=== PATIENT | female | born 1940 | race Caucasian/White ===

== ENCOUNTER 2023-10-31 20:31 | Inpatient (IN) | payer MEDICARE, BC, SELFPAY ==
[2023-10-31 20:44] VITALS: BP 153/78; PULSE 72; RESP 16; TEMP 36.9; O2SAT 96; BMI 21.3
--- NOTE | 2023-10-31 20:58 | ED_ITS ---
HPI - General Adult General Time Seen by Provider: 20:58 Date Seen: 10/31/23 Chief complaint: Fall/Minor Trauma Stated complaint: fell, injured R shoulder/leg Time Seen by Provider: 10/31/23 20:58 Source: patient, family and RN notes reviewed Mode of arrival: wheelchair Limitations: no limitations History of Present Illness HPI narrative: Jovanna is a very pleasant 83-year-old female not currently on blood thinners, with a history of hypothyroidism who comes to the emergency room with her and her daughter for evaluation regarding a fall. Jovanna was going down steps into a lower level of a split-level house where she is staying with her daughter. Unfortunately she misjudged and missed the last step falling and landing out on carpet over cement injuring her right shoulder right hip and leg. She did not strike her head nor does she have headache or neck pain. She denies shortness of breath, chest pain dizziness or any prodromal symptoms prior to the fall. After the fall she did roll onto her back and had some dizziness and complained of pain which her daughter states is unusual for her. She has not taken any pain medication at this time. She notes that it is hard to move her right shoulder. She shows pain to be in the shoulder and upper humerus. When she was upright she had a hard time standing and bearing weight and had complained of pain in her hip although now that she is supine that she has no pain in her hip. She shows pain to be in her right lateral lower femur area as well as her knee. Movement increases her discomfort. Bearing weight increases her discomfort. Related Data Home Medications ?Medication ?Instructions ?Recorded ?Confirmed escitalopram oxalate 10 mg tablet 10 mg PO DAILY 10/31/23 10/31/23 estradiol 0.01% (0.1 mg/gram) 0.5 appful vaginal 3XW 10/31/23 10/31/23 vaginal cream levothyroxine 75 mcg tablet 75 mcg PO QAM 10/31/23 10/31/23 Previous Rx's ?Medication ?Instructions ?Recorded acetaminophen 650 mg 650 mg PO Q6H PRN #90 tabs 11/03/23 tablet,extended release (Pain Relief (acetaminophen)) aspirin 81 mg tablet,delayed 81 mg PO BID #60 tabs 11/03/23 release cefpodoxime 100 mg tablet 100 mg PO BID #10 tabs 11/03/23 lidocaine 5 % topical patch 1 patch topical DAILY #15 ea 11/03/23 oxycodone 5 mg tablet 2.5 mg (1/2 x 5 mg) PO Q4H PRN 11/03/23 Pain #20 tabs rivaroxaban 10 mg tablet 10 mg PO DAILY #3 tabs 11/03/23 sennosides 8.6 mg tablet (Senna 8.6 mg PO BID #60 tabs 11/03/23 Lax) Allergies Allergy/AdvReac Type Severity Reaction Status Date / Time amoxicillin AdvReac Nausea Verified 10/31/23 20:51 Review of Systems Status of ROS: Reports: 6 or more systems reviewed and unremarkable except as noted in History and below Narrative: Denies recent cough cold congestion. Denies chest pain shortness of breath history of heart issues. Does not smoke. Is not currently on a blood thinner. Const: Denies: fever Eyes: Denies: change in vision or blurry vision ENMT: Denies: neck pain Cardio: Denies: chest pain or shortness of breath with exertion Resp: Denies: shortness of breath or cough GI: Denies: abdominal pain or nausea Musculo: Reports: extremity pain and limited range of motion; Denies: back pain, neck pain or extremity swelling Neuro: Denies: headache PFSH PFSH Medical History Depression ?F32.A - Depression, unspecified (ICD-10) Hypothyroid ?E03.9 - Hypothyroidism, unspecified (ICD-10) Social History What is your current living situation?: I presently have a place to live Problems where you live: no known problems Problems where you live details: na In the past 12 months, utilities in danger of being shut off: no In past 12 months, lack of transportation kept you from medical appts, meetings, work, or getting things needed for daily living: no In the past 12 mos, have been you worried that your food would run out before you had money to buy more?: never true In the past 12 mos, the food you bought just didn't last and you didn't have money to buy more?: never true Highest level of school completed/degree received: Bachelor's degree Smoking Status: Never smoker Do you use any of these nicotine containing products: None Second hand tobacco smoke exposure: No How often do you have a drink containing alcohol: never AUDIT-C Alcohol total score: 0 Non-prescribed substance use: denies use How often does anyone, including family, friends and others, physically hurt you : never How often does anyone, including family, friends and others, insult or talk down to you: never How often does anyone, including family, friends and others, threaten you with harm: never How often does anyone, including family, friends and others, scream or curse at you: never Exam Narrative: Exam Narrative: Alert and oriented. Well-spoken woman in no acute distress. Mentating normally. EOM is full. Head is atraumatic normocephalic. No cervical midline tenderness. Neck is supple with full range of motion. Palpation over the clavicles bilaterally without discomfort. No significant tenderness over the shoulder. Discomfort mild in the upper aspect of the right humerus. Passive range of motion of the elbow wrist hand without any discomfort. Patient voices difficulty with elbow flexion. Biceps appears to be intact. No evidence of a high-riding mass on the volar aspect of the upper arm. Palpation over sacrum right buttock right hip without discomfort. Quad appears to be intact. Abdomen is soft nontender. Heart with regular rate and rhythm lungs are clear to auscultation. Const: Vital Signs, click to edit/add: Vital Signs - 24 hr 10/31/23 20:44 Temperature 98.5 F Pulse Rate [Pulse Oximeter] 72 Respiratory Rate 16 Blood Pressure [Le ft Upper Arm] 153/78 H Pulse Oximetry 96 Oxygen Delivery Me thod Room Air Documenting provider has reviewed patient's vital signs: yes Course Course ED Course: At this time will proceed with x-rays of the right shoulder right humerus, right hip pelvis right femur and right knee. Reevaluation(s) Reevaluation #1: Nursing staff did place Pringle catheter after patient noted to have hip fracture. Urine was very cloudy. Discussion with patient notes that she does get UTIs frequently although at this time she has no urinary frequency or discomfort. Consultations Consultation #1: I spoke with giulia Leon regarding this patient. Will make her NPO after 0400 hours. He is aware that she unfortunately also has a right humeral fracture in addition to her right hip fracture. Vital Signs Vital signs: Initial Vital Signs Temperature 98.5 F 10/31/23 20:44 Temperature Source Temporal Artery Scan 10/31/23 20:44 Pulse Rate 72 10/31/23 20:44 Respiratory Rate 16 10/31/23 20:44 Blood Pressure 153/78 H 10/31/23 20:44 Blood Pressure Mean 103 10/31/23 20:44 Blood Pressure Position Sitting 10/31/23 20:44 Pulse Oximetry 96 10/31/23 20:44 Oxygen Delivery Method Room Air 10/31/23 20:44 Vital Signs Temperature 98.5 F 10/31/23 20:44 Pulse Rate 72 10/31/23 20:44 Respiratory Rate 16 10/31/23 20:44 Blood Pressure 153/78 H 10/31/23 20:44 Pulse Oximetry 96 10/31/23 20:44 Oxygen Delivery Method Room Air 10/31/23 20:44 Temperature 98.4 F 11/03/23 11:00 Pulse Rate 87 11/03/23 11:00 Respiratory Rate 18 11/03/23 11:00 Blood Pressure 111/56 L 11/03/23 11:00 Pulse Oximetry 95 11/03/23 11:00 Oxygen Delivery Method Room Air 11/03/23 11:00 Oxygen Flow Rate 1 11/02/23 01:10 Medications Administered Medications: Discontinued Medications Generic Name Dose Route Start Last Admin Trade Name Alcon PRN Reason Stop Dose Admin Acetaminophen 1,000 mg 11/01/23 09:00 11/01/23 15:31 Acetaminophen 500 Mg Tablet PO Not Given TID AMINTA Acetaminophen 650 mg 11/01/23 20:00 11/03/23 10:17 Acetaminophen 325 Mg Tablet PO 650 mg Q6H AMINTA Administration Acetaminophen 650 mg 11/03/23 16:00 11/03/23 16:18 Acetaminophen 325 Mg Tablet PO 650 mg Q6H AMINTA Administration Cefazolin Sodium 2 gm 11/01/23 14:49 11/01/23 15:53 Cefazolin 2 Gm Inj IVP 11/01/23 14:50 1 gm ONCE ONE Administration Escitalopram Oxalate 10 mg 11/02/23 09:00 11/03/23 10:16 Escitalopram 10 Mg Tablet PO 10 mg DAILY AMINTA Administration Hydromorphone HCl 0.5 mg 11/01/23 00:19 11/01/23 09:12 Hydromorphone 0.5 Mg/0.5 Ml Inj IVP 0.5 mg Q1H PRN Administration Breakthrough Pain Ceftriaxone Sodium 1 gm/ 100 mls @ 200 mls/hr 11/01/23 00:20 11/01/23 01:29 Sodium Chloride IVPB 11/01/23 00:21 Infused ONCE ONE Infusion Ceftriaxone Sodium 1 gm/ 100 mls @ 200 mls/hr 11/02/23 00:01 11/03/23 00:10 Sodium Chloride IVPB 200 mls/hr Q24H AMINTA Administration Sodium Chloride 1,000 mls @ 125 mls/hr 11/01/23 13:03 11/01/23 23:03 0.9 % Sodium Chloride 1000 Ml IV Not Given .Q8H AMINTA Lactated Ringer's 1,000 mls @ 100 mls/hr 11/01/23 15:10 11/01/23 18:57 Lactated Ringers 1000 Ml IV 100 mls/hr .Q10H AMINTA Infusion Lactated Ringer's 1,000 mls @ 75 mls/hr 11/01/23 19:41 11/02/23 12:37 Lactated Ringers 1000 Ml IV 75 mls/hr .[id number] AMINTA Administration Cefazolin Sodium 1 gm/ Sodium 100 mls @ 200 mls/hr 11/01/23 21:00 11/02/23 04:58 Chloride IVPB 11/02/23 05:29 200 mls/hr Q8H AMINTA Administration Levothyroxine Sodium 75 mcg 11/02/23 07:00 11/03/23 05:50 Levothyroxine 75 Mcg Tablet PO 75 mcg DAILY@0700 AMINTA Administration Lidocaine 1 patch 11/02/23 12:45 11/03/23 14:16 Lidocaine 5% Patch TRANSDERMA 1 patch Q24H AMINTA Administration Protocol Oxycodone HCl 5 mg 11/01/23 00:19 11/02/23 08:13 Oxycodone 5 Mg Tablet PO 5 mg Q4H PRN Administration Pain Oxycodone HCl 2.5 - 5 mg 11/02/23 13:46 11/02/23 21:26 Oxycodone 5 Mg Tablet PO 2.5 mg Q4H PRN Administration Pain Rivaroxaban 10 mg 11/02/23 09:00 11/03/23 10:17 Rivaroxaban 10 Mg Tablet PO 10 mg DAILY AMINTA Administration Sennosides 2 tab 11/01/23 21:00 11/03/23 10:17 Sennosides 1 Tab Tablet PO Not Given BID AMINTA Sodium Chloride 5 ml 11/01/23 00:19 11/03/23 00:15 Sodium Chloride 0.9 % (Flush) 10 Ml Syringe IVF 5 ml .FLUSH PRN Administration Sodium Chloride 5 ml 11/01/23 09:00 11/03/23 10:18 Sodium Chloride 0.9 % (Flush) 10 Ml Syringe IVF 5 ml BID AMINTA Administration Sodium Chloride 250 ml 11/02/23 11:57 11/02/23 12:02 0.9 % Sodium Chloride 250 Ml IV 11/02/23 11:58 250 ml ONCE ONE Administration Tranexamic Acid 1,000 mg 11/01/23 14:49 11/01/23 15:55 Tranexamic Acid 100 Mg/Ml Inj IV 11/01/23 14:50 1,000 mg ONCE ONE Administration Medical Decision Making MDM Narrative Medical decision making narrative: 1. Right hip fracture-impacted femoral neck fracture noted on x-ray. Patient's pain is very well controlled at rest. Have inserted Pringle catheter and currently drawing labs to include CBC, basic panel as this will need surgical management. I have spoken with Jacky from Ortho regarding this patient. 2. Right humeral neck fracture-no significant displacement. Will immobilize wi th sling or ideally with specialized immobilizer. 3. Disposition-admit under the care of of [facility] hospitalist. Addendum: Urinalysis push suspicious for UTI. Patient has 2+ leukocyte esterase as well as 20-50 wbc's. Under normal circumstances I would wait for urine culture as patient does not have any symptoms but given the fact stools potential surgery will treat her with Rocephin 1 g IV and await urine culture. Medical Records Medical records narrative: None available as patient lives in [place] Lab Data Lab results reviewed: Yes I reviewed the patient's lab results Labs: Lab Results 10/31/23 10/31/23 Range/Units 00:14 23:35 WBC 14.76 H (4.50-11.00) K/uL RBC 4.06 (4.00-5.20) m/uL Hgb 12.6 (12.0-16.0) gm/dL Hct 39.2 (33.0-51.0) % MCV 97 (80-100) fL MCH 31 (26-34) pg MCHC 32 (32-36) gm/dL RDW Coeff of Mally 13.1 (11.5-15.5) % Plt Count 226 (140-440) K/uL Neut % (Auto) 86.5 H (42.0-72.0) % Lymph % (Auto) 7.0 L (20-44) % Charles % (Auto) 5.4 (0.0-11.0) % Eos % (Auto) 0.1 (0.0-7.0) % Baso % (Auto) 0.1 (0.0-3.0) % Neut # (Auto) 12.80 H (1.7-7.0) K/uL Lymph # (Auto) 1.00 (0.90-2.90) K/uL Charles # (Auto) 0.80 (0.00-0.90) K/UL Eos # (Auto) 0.00 (0.00-0.50) K/uL Baso # (Auto) 0.00 (0.00-0.30) K/uL Abs Immat Gran (auto) 0.10 (0.00-0.30) K/uL Imm/Tot Granulo (auto) 0.9 % Sodium 137 (135-149) mmol/L Potassium 4.6 (3.6-5.1) mmol/L Chloride 104 (96-114) mmol/L Carbon Dioxide 26 (20-32) mmol/L Anion Gap 7 (7-15) mEq/L BUN 28 (7-30) mg/dL Creatinine 0.9 (0.5-1.5) mg/dL Estimated Creat Clear 36.50 Estimated GFR 64 ml/min Glucose 169 H (60-115) mg/dL Calcium 9.2 (8.4-10.6) mg/dL Urine Color Yellow (Yellow) Urine Appearance Cloudy A (Clear) Urine pH 6.0 (5.0-8.5) Ur Specific Craig 1.025 (1.000-1.030) Urine Protein 1+ A (Negative) Urine Glucose (UA) Negative (Negative) Urine Ketones Trace A (Negative) Urine Blood 1+ A (Negative) Urine Nitrite Positive A (Negative) Urine Bilirubin Negative (Negative) Urine Urobilinogen 0.2 (0.2-1.0) Ur Leukocyte Esterase 2+ A (Negative) Urine RBC 0-2 (0-2) Urine WBC 25-50 A (0-5) Ur Squamous Epith Cells Moderate A (None-Few) Urine Bacteria Many A (None) Imaging Data Right shoulder x-ray: Attestation: I have reviewed the pertinent imaging results. My impression: Obvious fracture of right humeral neck. No displacement noted. Radiologist's impression: Nondisplaced fracture of the right humeral neck. Joint alignment is maintained. AC joint degenerative changes. Soft tissues are unremarkable. IMPRESSION: Nondisplaced right humeral neck fracture. Right humerus x-ray: Attestation: I have reviewed the pertinent imaging results. Radiologist's impression: FINDINGS: Nondisplaced fracture of the right humeral neck. Joint alignment is maintained. Soft tissues are unremarkable. IMPRESSION: Nondisplaced right humeral neck fracture. Pelvis x-ray: Attestation: I have reviewed the pertinent imaging results. My impression: No obvious pelvic fractures. Right femoral neck fracture noted. Right femur x-ray: Attestation: I have reviewed the pertinent imaging results. Radiologist's impression: Impacted fracture of the right femoral neck. Joint alignment is maintained. Mild soft tissue swelling. IMPRESSION: Impacted right femoral neck fracture. Right hip: Attestation: I have reviewed the pertinent imaging results. My impression: Obvious fracture of the right femoral neck/impacted. Radiologist's impression: Impacted fracture of the right femoral neck. Joint alignment is maintained. Bilateral hip joint spaces are preserved. Moderate colonic stool load. IMPRESSION: Impacted right femoral neck fracture. Right knee x-ray: Attestation: I have reviewed the pertinent imaging results. My impression: No obvious fracture Radiologist's impression: No acute fractures or malalignment. Trace joint effusion. Mild to moderate degenerative changes. Vascular calcifications. IMPRESSION: Trace joint effusion without evidence of acute osseous abnormality. Chest x-ray: Attestation: I have reviewed the pertinent imaging results. My impression: No obvious infiltrate Radiologist's impression: Cardiovascular and mediastinum: Heart size and vasculature are normal in caliber and appearance. Lungs and pleural spaces: Lungs are clear. No sign of infiltrate or mass. No sign of pleural effusion. No pneumothorax. Bones and soft tissues: Partially visualized proximal right humeral fracture. IMPRESSION: 1. Partially visualized proximal right humeral fracture, please refer to separate concurrent right shoulder radiographs. 2. No acute pulmonary process. ECG Data Attestation: I personally reviewed and interpreted this ECG as follows: Interpretation: EKG by my read shows sinus rhythm at a rate of 87. Occasional PVC is noted. Nonspecific ST abnormality otherwise I do not note any acute changes on the EKG. ID and QT intervals within normal limits. Discharge Plan Discharge Clinical Impression: Fracture of hip, right, closed, Closed right humeral fracture Patient Disposition: Admitted As Observation Condition: Stable Activity Level: Activity as Tolerated and Weight Bearing as Tolerated Activity Detail: Right hip: Wound: ? Do not remove original dressing; we will remove this at first postop visit in 1 week. Only remove dressing if integrity is in question. ? No immersing wound in water; showering okay; light scrub with your hand and body soap, rinse, dab dry ? Sutures are under the skin, will dissolve; allow surgical glue to come off naturally; do not scrub the wound or apply ointments/lotions ? Call our office with any redness that streaks, excessive drainage from the wound, or wound gapping. Ice/Elevate: ? Ice as needed for swelling and discomfort (ice pack); elevate extremity frequently above the heart. Motion/Exercise: ? Weight bear as tolerated right lower extremity. She will be unable to use a walker or cane due to right proximal humerus fracture ? Per PT/OT. ? Straight leg raises daily: 1-2 sets of 10 reps Pain Medications: ? Oral narcotic as prescribed. Wean as tolerated. Additional acetaminophen and ibuprofen as needed. Blood Clot Prevention (DVT): ? Medication: 3 days of xarelto, followed by 30 days 81 mg aspirin by mouth twi ce daily (35 days total treatment) Driving: ? Do not drive while taking narcotic pain medication ? Anticipate 4-6 weeks no driving if operative leg is driving leg Dental: ? No elective dental work for 6 months post-op. If there is an urgent/emergent dental need, contact our office for an antibiotic prescription. Smoking/Alcohol: ? Do not smoke; do no drink alcohol especially when taking postoperative oral narcotic medication Seek Care from you Primary Care Provider if you experience the following issues in the postoperative phase and beyond: ? Bacterial infections such as: pneumonia, bacterial skin infection (cellulitis), UTI, high fever, chills unrelated to the operative body part - call your primary care physician urgently for treatment in hopes to protect your health and the metal implant. Referrals: ? PT, OT per patient preference - evaluate and right hip bipolar hemiarthroplasty- anterior approach (gait training, ROM, ADLs) Vaccines: ? No vaccines until 4-6 weeks postop Follow up: ? PA-C visit 11/11/23 ? Ortho surgeon Dr. Roa follow-up in 6 weeks; repeat radiographs AP pelvis, cross table lateral operative hip; AND 3 views right shoulder Right shoulder: -nonweightbearing right upper extremity. Continue shoulder immobilizer. Okay to come out of the shoulder immobilizer at the wrist to allow the arm to be at her side and provide some distraction to the fracture. Encouraged frequent right elbow active motion (full flexion and extension as tolerated) If there are any acute concerns regarding your surgery, please call our ortho pedic clinic ([phone]) Discharge Diet: Regular
--- NOTE | 2023-10-31 21:13 | CRLHL7_ITS ---
For Patients: As a result of the Century Cures Act, medical imaging exams and procedure reports are released immediately into your electronic medical record. You may view this report before your referring provider. If you have questions, please contact your health care provider. INDICATION: Trauma, fall. TECHNIQUE: Right shoulder 2 views. COMPARISON: None. FINDINGS: Nondisplaced fracture of the right humeral neck. Joint alignment is maintained. AC joint degenerative changes. Soft tissues are unremarkable. IMPRESSION: Nondisplaced right humeral neck fracture. Dictated by Darshan Lr MD @ 10/31/2023 10:52:29 PM (Electronically Signed)
--- NOTE | 2023-10-31 21:13 | CRLHL7_ITS ---
For Patients: As a result of the Century Cures Act, medical imaging exams and procedure reports are released immediately into your electronic medical record. You may view this report before your referring provider. If you have questions, please contact your health care provider. INDICATION: Trauma, fall. TECHNIQUE: Right humerus 2 views. COMPARISON: None. FINDINGS: Nondisplaced fracture of the right humeral neck. Joint alignment is maintained. Soft tissues are unremarkable. IMPRESSION: Nondisplaced right humeral neck fracture. Dictated by Darshan Lr MD @ 10/31/2023 10:53:15 PM (Electronically Signed)
--- NOTE | 2023-10-31 21:13 | CRLHL7_ITS ---
For Patients: As a result of the Cures Act, medical imaging exams and procedure reports are released immediately into your electronic medical record. You may view this report before your referring provider. If you have questions, please contact your health care provider. INDICATION: Trauma, fall. TECHNIQUE: Right femur 2 views. COMPARISON: None. FINDINGS: Impacted fracture of the right femoral neck. Joint alignment is maintained. Mild soft tissue swelling. IMPRESSION: Impacted right femoral neck fracture. Dictated by Darshan Lr MD @ 10/31/2023 10:58:55 PM (Electronically Signed)
--- NOTE | 2023-10-31 21:13 | CRLHL7_ITS ---
For Patients: As a result of the Cures Act, medical imaging exams and procedure reports are released immediately into your electronic medical record. You may view this report before your referring provider. If you have questions, please contact your health care provider. INDICATION: Trauma, fall. TECHNIQUE: Right knee 2 views. COMPARISON: None. FINDINGS: No acute fractures or malalignment. Trace joint effusion. Mild to moderate degenerative changes. Vascular calcifications. IMPRESSION: Trace joint effusion without evidence of acute osseous abnormality. Dictated by Darshan Lr MD @ 10/31/2023 10:57:42 PM (Electronically Signed)
--- NOTE | 2023-10-31 21:13 | CRLHL7_ITS ---
For Patients: As a result of the Century Cures Act, medical imaging exams and procedure reports are released immediately into your electronic medical record. You may view this report before your referring provider. If you have questions, please contact your health care provider. INDICATION: Trauma, fall. TECHNIQUE: Pelvis and right hip 3 views. COMPARISON: None. FINDINGS: Impacted fracture of the right femoral neck. Joint alignment is maintained. Bilateral hip joint spaces are preserved. Moderate colonic stool load. IMPRESSION: Impacted right femoral neck fracture. Dictated by Darshan Lr MD @ 10/31/2023 10:59:58 PM (Electronically Signed)
--- NOTE | 2023-10-31 21:44 | CRLHL7_ITS ---
For Patients: As a result of the Century Cures Act, medical imaging exams and procedure reports are released immediately into your electronic medical record. You may view this report before your referring provider. If you have questions, please contact your health care provider. INDICATION: Trauma, fall. TECHNIQUE: Chest 1 view. COMPARISON: None. FINDINGS: Cardiovascular and mediastinum: Heart size and vasculature are normal in caliber and appearance. Lungs and pleural spaces: Lungs are clear. No sign of infiltrate or mass. No sign of pleural effusion. No pneumothorax. Bones and soft tissues: Partially visualized proximal right humeral fracture. IMPRESSION: 1. Partially visualized proximal right humeral fracture, please refer to separate concurrent right shoulder radiographs. 2. No acute pulmonary process. Dictated by Darshan Lr MD @ 10/31/2023 10:56:37 PM (Electronically Signed)
[2023-10-31 23:00] VITALS: BP 127/70; PULSE 97; RESP 16; O2SAT 100
[2023-10-31 23:30] VITALS: BP 152/81; PULSE 98; RESP 18; O2SAT 100
[2023-10-31 23:55] LABS: Appearance Urine Cloudy (Clear); Bilirubin Urine Negative (Negative); Blood Urine 1+ (Negative); Color Urine Yellow (Yellow); Glucose Urine Negative (Negative); Ketones Urine Trace (Negative); Leukocyte Esterase Urine 2+ (Negative); Nitrite Urine Positive (Negative); Protein Urine 1+ (Negative); Specific Gravity Urine 1.025 (1.000-1.030); Urobilinogen Urine 0.2 (0.2-1.0)
[2023-11-01] VITALS (25 sets, daily range): BP systolic 90–148; BP diastolic 48–76; PULSE 62–93; RESP 11–16; TEMP 36–37.3; O2SAT 91–98; BMI 21.2
[2023-11-01 00:01] LABS: Bacteria Urine Many; RBC Urine 0-2 (0-2); Squamous Epithelial Cell Urine Moderate (None-Few); WBC Urine 25-50 (0-5)
[2023-11-01 00:19] LABS: Basophils Percent Auto 0.1 % (0.0-3.0); Eosinophils Percent Auto 0.1 % (0.0-7.0); Hematocrit 39.2 % (33.0-51.0); Hemoglobin* 12.6 gm/dL (12.0-16.0); Immature Granulocytes Pct Auto 0.9 %; Mean Corpuscular HGB Conc 32 gm/dL (32-36); Mean Corpuscular Hemoglobin 31 pg (26-34); Mean Corpuscular Volume 97 fL (80-100); Monocytes Percent Auto 5.4 % (0.0-11.0); Neutrophils Percent Auto 86.5 % (42.0-72.0); Platelet Count* 226 K/uL (140-440); RDW Coefficient of Variation % 13.1 % (11.5-15.5); Red Blood Count 4.06 m/uL (4.00-5.20); White Blood Count* 14.76 K/uL (4.50-11.00)
[2023-11-01 00:26] LABS: Slide Review Reflex No
--- NOTE | 2023-11-01 00:26 | W.PM.THH&P_ITS ---
Telehealth- H&P: HPI History of Present Illness Date Seen: 11/01/23 Chief complaint: fell, injured R shoulder/leg Narrative: Jovanna Traylor is seen as an Interactive Telehealth visit. Jovanna Traylor is a 83 year old female who is is healthy at baseline on levothyroxine and escitalopram who presented after a fall. Patient was going down the stairs and missed the last step, fell on her right side. She landed on the carpet with immediate pain in her right hip and right shoulder. She did not have any preceding lightheadedness or dizziness. After the fall when she rolled onto her back she had intense pain and complained of a little bit of dizziness during the episode of pain. She had difficulty bearing weight on her right leg but the pain improved when she was able to lay supine. She also had some knee pain after the fall. She denies any chest pain. Denies any shortness of breath. At baseline is able to walk several blocks without stopping. She is very active. In the ER she was noted to have a right femoral neck fracture and a right proximal humerus fracture. ER discussed the case with orthopedic surgery with plan for OR Review of Systems Status of ROS: Reports: 10 or more systems reviewed and unremarkable except as noted in History and below [facility] Medical History (Updated 11/01/23 @ 01:19 by Kofi Rod MD) Depression ?F32.A - Depression, unspecified (ICD-10) Hypothyroid ?E03.9 - Hypothyroidism, unspecified (ICD-10) Social History Smoking Status: Never smoker Do you use any of these nicotine containing products: None Second hand tobacco smoke exposure: No How often do you have a drink containing alcohol: never AUDIT-C Alcohol total score: 0 Non-prescribed substance use: denies use Meds Home Medications and Allergies Home Medications ?Medication ?Instructions ?Recorded ?Confirmed ?Type escitalopram oxalate 10 mg tablet 10 mg PO DAILY 10/31/23 10/31/23 History estradiol 0.01% (0.1 mg/gram) 0.5 appful vaginal 3XW 10/31/23 10/31/23 History vaginal cream levothyroxine 75 mcg tablet 75 mcg PO QAM 10/31/23 10/31/23 History Allergies Allergy/AdvReac Type Severity Reaction Status Date / Time amoxicillin AdvReac Nausea Verified 10/31/23 20:51 Exam Narrative Exam Narrative: Physical Exam GENERAL: ?vital signs reviewed, well developed and nourished, in no distress HEENT: pupils are equal round and reactive to light, extraocular movements are grossly within normal limits and oral mucosa is moist. NECK: Supple without lymphadenopathy or thyromegaly according to nursing staff examination observation HEART: Regular rate and rhythm without any rubs, murmurs, or gallops. LUNGS: Clear to auscultation bilaterally with good air movement throughout ABDOMEN: Observation from nurse assisted exam, abdomen appears soft, nontender, and nondistended with Positive bowel sounds noted. EXTREMITIES: Strength and sensation is observed to be grossly within normal limits in the upper and lower extremities.? right leg strength not assessed but does have good distal movement and sensation. SKIN:? Observed warm and dry with color normal Const Vital Signs, click to edit/add: Vital Signs - 24 hr 10/31/23 20:44 Temperature 98.5 F Pulse Rate [Pulse Oximeter] 72 Respiratory Rate 16 Blood Pressure [Left Upper Arm] 153/78 H Pulse Oximetry 96 Oxygen Delivery Method Room Air Hospitalist - H&P: Result Labs Labs: Urine 10/31/23 Range/Units 23:35 Urine Color Yellow (Yellow) Urine Appearance Cloudy A (Clear) Urine pH 6.0 (5.0-8.5) Ur Specific [place] 1.025 (1.000-1.030) Urine Protein 1+ A (Negative) Urine Glucose (UA) Negative (Negative) Assessment and Plan Assessment and plan (1) Closed right humeral fracture: Status: Acute (2) Fracture of hip, right, closed: Status: Acute (3) Hypothyroid: Status: Acute (4) Depression: Status: Acute Plan Impacted fracture of R femoral neck Plan for OR in AM per orthopedics Pre-Op risk stratification: CXR personally reviewed: No focal opacity or cardiomegaly NISQP Suggest low risk. RCRI score 0. No history of CAD, CHF, valvular heart disease, diabetes, kidney disease or stroke Patient is very active at baseline greater than 4 METS No additional preoperative risk stratification or optimization required prior to the planned procedure PT after surgery No other injury noted on imaging. Landed on her side, denies hitting head or neck. Proximal right humerus fracture Immobilizer in place Acute cystitis Patient has urinary frequency with abnormal UA, will repeat UA due to contamination with squamous epithelial cells but will continue ceftriaxone for now Hypothyroidism Continue levothyroxine when verified Depression Continue escitalopram when verified Full code confirmed on admission Start DVT prophylaxis per orthopedic surgery Telehealth: Statement Statement Telehealth Visit: Today's History and Physical is provided via interactive telehealth by Kofi Rod MD.? Patient is located at [facility].? Provider is located at [facility].? Nursing staff assisted with the patient's exam. The visit being done today meets criteria for a telehealth visit and the patient or patient?s parent/guardian is aware the visit is a telehealth visit. Camera Start Time: 01:27 Camera End Time: 01:36
[2023-11-01] MEDS: cefTRIAXone 1 GM in 0.9 % SODIUM CHLORIDE Mini-bag 100 ML IVPB (00:31)
[2023-11-01 00:41] LABS: Chloride* 104 mmol/L (96-114)
[2023-11-01 00:42] LABS: Potassium* 4.6 mmol/L (3.6-5.1); Sodium* 137 mmol/L (135-149)
[2023-11-01 00:44] LABS: Anion Gap 7 mEq/L (7-15); Carbon Dioxide* 26 mmol/L (20-32); Creatinine* 0.9 mg/dL (0.5-1.5); Estimated Glomerular Filt Rate 64 ml/min
[2023-11-01 00:45] LABS: Blood Urea Nitrogen* 28 mg/dL (7-30); Calcium* 9.2 mg/dL (8.4-10.6); Glucose* 169 mg/dL (60-115)
[2023-11-01] MEDS: OXYCODONE 5 MG TABLET PO (01:46)
[2023-11-01 02:51] LABS: Appearance Urine Cloudy (Clear); Bilirubin Urine Negative (Negative); Blood Urine 2+ (Negative); Color Urine Yellow (Yellow); Glucose Urine Negative (Negative); Ketones Urine 1+ (Negative); Leukocyte Esterase Urine 1+ (Negative); Nitrite Urine Positive (Negative); Protein Urine 2+ (Negative); Specific Gravity Urine >= 1.030 (1.000-1.030); Urobilinogen Urine 0.2 (0.2-1.0); pH Urine 6.5 (5.0-8.5)
[2023-11-01 02:54] LABS: WBC Urine 25-50 (0-5)
--- NOTE | 2023-11-01 07:58 | P.IMPN_ITS ---
Progress Note: A&P Assessment and plan (1) Closed right humeral fracture: Problem details: CT shows subtle nondisplaced 3 part fracture of the proximal humeral neck and tuberosities Per orthopedic surgery, non operative treatment for proximal humerus fracture Pain management, immobilization PT/OT Status: Acute (2) Fracture of hip, right, closed: Problem details: Plain film shows impacted fracture of the right femoral neck Per Orthopedic surgery, to OR this afternoon for cemented bipolar hemiarthroplasty Pain management PT/OT postoperatively student services coordinator for discharge planning/placement needs Status: Acute (3) Hypothyroid: Problem details: Continue levothyroxine Status: Acute (4) Depression: Problem details: Continue escitalopram Status: Acute Time Spent With Patient Total time spent: Total time spent caring for the patient today was 45 minutes. This includes time spent for the visit reviewing the chart, time spent during the visit, time spent after the visit and documentation and planning in coordination of care. Subjective Date Seen: 11/01/23 Interval history: Patient is seen lying flat in bed this morning. Pain is currently adequately managed, as long as she remains still. Denies headache or dizziness. Denies chest pain or shortness of breath. No nausea. Has remained NPO. Orthopedic surgery has been consulted, awaiting plan of care. Patient is a nonsmoker. Alcohol use on occasion during the week. Denies previous history of anesthesia complications. No known personal or family history of bleeding disorders. Exam Narrative: Exam Narrative: PHYSICAL EXAM General: Pleasant, NAD HEENT: Normocephalic, atraumatic, sclera white, EOMI, oral mucosa moist Cardiovascular: RRR, S1S2. No pitting edema Pulmonary: CTA bilaterally without rhonchi, rales, expiratory wheezes. No dyspnea on room air Abdominal: Soft, nondistended, NTTP Neurological: Alert, answering questions appropriately, cranial nerves intact, no focal findings Extremities: Right shoulder splinted. No edema or erythema of lower extremities. Neurovascularly intact Skin: Warm, dry. Const: Vital Signs, click to edit/add: Vital Signs - 24 hr 10/31/23 20:44 10/31/23 23:00 10/31/23 23:30 Temperature 98.5 F Pulse Rate [Pulse Oximeter] 72 97 98 Respiratory Rate 16 16 18 Blood Pressure [Le ft Upper Arm] 153/78 H 127/70 152/81 H Blood Pressure [Ri ght Arm] Pulse Oximetry 96 100 100 Oxygen Delivery Me thod Room Air Room Air Room Air 11/01/23 00:00 11/01/23 00:19 11/01/23 01:20 Temperature 99.2 F Pulse Rate [Pulse Oximeter] 92 93 Respiratory Rate 16 16 Blood Pressure [Le ft Upper Arm] 132/68 Blood Pressure [Ri ght Arm] 144/57 H Pulse Oximetry 98 96 96 Oxygen Delivery Me thod Room Air Room Air 11/01/23 02:15 11/01/23 04:55 Temperature 99.2 F Pulse Rate [Pulse Oximeter] 89 Respiratory Rate 16 16 Blood Pressure [Le ft Upper Arm] Blood Pressure [Ri ght Arm] 115/72 Pulse Oximetry 96 93 Oxygen Delivery Me thod Room Air Room Air Labs Labs: Laboratory Results - last 24 hr 10/31/23 10/31/23 11/01/23 00:14 23:35 01:41 WBC 14.76 H RBC 4.06 Hgb 12.6 Hct 39.2 MCV 97 MCH 31 MCHC 32 RDW Coeff of Mally 13.1 Plt Count 226 Neut % (Auto) 86.5 H Lymph % (Auto) 7.0 L [place] % (Auto) 5.4 Eos % (Auto) 0.1 Baso % (Auto) 0.1 Neut # (Auto) 12.80 H Lymph # (Auto) 1.00 [place] # (Auto) 0.80 Eos # (Auto) 0.00 Baso # (Auto) 0.00 Abs Immat Gran (auto) 0.10 Imm/Tot Granulo (auto) 0.9 Sodium 137 Potassium 4.6 Chloride 104 Carbon Dioxide 26 Anion Gap 7 BUN 28 Creatinine 0.9 Estimated Creat Clear 36.50 Estimated GFR 64 Glucose 169 H Calcium 9.2 Urine Color Yellow Yellow Urine Appearance Cloudy A Cloudy A Urine pH 6.0 6.5 Ur Specific [place] 1.025 >= 1.030 Urine Protein 1+ A 2+ A Urine Glucose (UA) Negative Negative Urine Ketones Trace A 1+ A Urine Blood 1+ A 2+ A Urine Nitrite Positive A Positive A Urine Bilirubin Negative Negative Urine Urobilinogen 0.2 0.2 Ur Leukocyte Esterase 2+ A 1+ A Urine RBC 0-2 2-5 A Urine WBC 25-50 A 25-50 A Ur Squamous Epith Cells Moderate A None Urine Bacteria Many A None
--- NOTE | 2023-11-01 08:25 | CRLHL7_ITS ---
For Patients: As a result of the Century Cures Act, medical imaging exams and procedure reports are released immediately into your electronic medical record. You may view this report before your referring provider. If you have questions, please contact your health care provider. INDICATION: Characterize proximal humerus fracture. COMPARISON: Plain film 31 October 2023. TECHNIQUE: Multi detector noncontrast images right blunting and joint. Axial, coronal and sagittal reformats. FINDINGS: Subtle nondisplaced hairline fracture lucencies through the greater and lesser tuberosity across the surgical neck of the humerus without intra-articular extension to the humeral head. Anatomic glenohumeral alignment. Mild degenerative narrowing of the glenohumeral joint. Maintain acromial distance. Normal AC joint. No fracture of the scapula or clavicle. No fluid in the glenohumeral joint nor subacromial/subdeltoid bursa. IMPRESSION: Subtle nondisplaced three-part fracture of the proximal humeral neck and tuberosities. Please note that all CT scans at this facility use dose modulation, iterative reconstruction, and/or weight-based dosing when appropriate to reduce radiation dose to as low as reasonably achievable. Dictated by Leonel Schmidt MD @ 11/01/2023 10:17:25 AM (Electronically Signed)
[2023-11-01] MEDS: ACETAMINOPHEN 500 MG TABLET 1000 MG PO (09:11)
[2023-11-01] MEDS: HYDROmorphone 0.5 mg/0.5 ml inj IVP (09:12)
[2023-11-01] MEDS: SODIUM CHLORIDE 0.9 % (FLUSH) 10 ML SYRINGE 5 ML IVF (09:12)
[2023-11-01] MEDS: 0.9 % SODIUM CHLORIDE 1000 ml 1,000 ML 125 ML IV (13:30)
--- NOTE | 2023-11-01 15:17 | P.ORCN_ITS ---
History of Present Illness HPI Date Seen: 11/01/23 Chief complaint: fell, injured R shoulder/leg Narrative: The patient is an 83-year-old community ambulator, without assist. She fell sustaining a right hip and right shoulder fracture. She has never injured her hip or had surgery on it previously. The same is true for her right shoulder. She is right-hand dominant. Review of Systems Narrative: The patient denies: Fever, night sweats, shaking chills, nausea, vomiting, diarrhea, chest pain, chest pressure, shortness of breath, no rash, no change in hearing or vision, no issues with bleeding or clotting [facility], [facility] Medical History Depression ?F32.A - Depression, unspecified (ICD-10) Hypothyroid ?E03.9 - Hypothyroidism, unspecified (ICD-10) Social History What is your current living situation?: I presently have a place to live Problems where you live: no known problems Problems where you live details: na In the past 12 months, utilities in danger of being shut off: no In past 12 months, lack of transportation kept you from medical appts, meetings, work, or getting things needed for daily living: no In the past 12 mos, have been you worried that your food would run out before you had money to buy more?: never true In the past 12 mos, the food you bought just didn't last and you didn't have money to buy more?: never true Highest level of school completed/degree received: Bachelor's degree Smoking Status: Never smoker Do you use any of these nicotine containing products: None Second hand tobacco smoke exposure: No How often do you have a drink containing alcohol: never AUDIT-C Alcohol total score: 0 Non-prescribed substance use: denies use How often does anyone, including family, friends and others, physically hurt you : never How often does anyone, including family, friends and others, insult or talk down to you: never How often does anyone, including family, friends and others, threaten you with harm: never How often does anyone, including family, friends and others, scream or curse at you: never Meds Home Medications and Allergies Home Medications ?Medication ?Instructions ?Recorded ?Confirmed ?Type escitalopram oxalate 10 mg tablet 10 mg PO DAILY 10/31/23 10/31/23 History estradiol 0.01% (0.1 mg/gram) 0.5 appful vaginal 3XW 10/31/23 10/31/23 History vaginal cream levothyroxine 75 mcg tablet 75 mcg PO QAM 10/31/23 10/31/23 History Allergies Allergy/AdvReac Type Severity Reaction Status Date / Time amoxicillin AdvReac Nausea Verified 10/31/23 20:51 Ortho Exam Narrative Exam Narrative: The patient is alert and oriented x3, in no acute distress, they are able to converse in a normal speaking voice without obvious hearing loss and with nonlabored breathing. The patient is examined supine in the hospital bed. The skin about the right hip is intact, no surgical scars, no ecchymosis. Right shoulder exam shows no surgical scars, no clinical deformity, no ecchymosis. CMS to the right lower and right upper extremity is intact. Const Vital Signs, click to edit/add: Vital Signs - 24 hr 10/31/23 20:44 10/31/23 23:00 10/31/23 23:30 Temperature 98.5 F Pulse Rate [Pulse Oximeter] 72 97 98 Respiratory Rate 16 16 18 Blood Pressure [Left Upper Arm] 153/78 H 127/70 152/81 H Blood Pressure [Right Arm] Pulse Oximetry 96 100 100 Oxygen Delivery Method Room Air Room Air Room Air 11/01/23 00:00 11/01/23 00:19 11/01/23 01:20 Temperature 99.2 F Pulse Rate [Pulse Oximeter] 92 93 Respiratory Rate 16 16 Blood Pressure [Left Upper Arm] 132/68 Blood Pressure [Right Arm] 144/57 H Pulse Oximetry 98 96 96 Oxygen Delivery Method Room Air Room Air 11/01/23 02:15 11/01/23 04:55 11/01/23 08:30 Temperature 99.2 F Pulse Rate [Pulse Oximeter] 89 Respiratory Rate 16 16 Blood Pressure [Left Upper Arm] Blood Pressure [Right Arm] 115/72 Pulse Oximetry 96 93 91 Oxygen Delivery Method Room Air Room Air 11/01/23 08:30 11/01/23 08:30 11/01/23 11:00 Temperature 98.5 F Pulse Rate [Pulse Oximeter] 91 91 69 Respiratory Rate 16 16 16 Blood Pressure [Left Upper Arm] Blood Pressure [Right Arm] 125/59 L 115/57 L Pulse Oximetry 95 92 Oxygen Delivery Method Room Air Room Air Results Labs Labs: Laboratory Results - last 48 hr 10/31/23 10/31/23 11/01/23 00:14 23:35 01:41 WBC 14.76 H RBC 4.06 Hgb 12.6 Hct 39.2 MCV 97 MCH 31 MCHC 32 RDW Coeff of Mally 13.1 Plt Count 226 Neut % (Auto) 86.5 H Lymph % (Auto) 7.0 L [place] % (Auto) 5.4 Eos % (Auto) 0.1 Baso % (Auto) 0.1 Neut # (Auto) 12.80 H Lymph # (Auto) 1.00 [place] # (Auto) 0.80 Eos # (Auto) 0.00 Baso # (Auto) 0.00 Abs Immat Gran (auto) 0.10 Imm/Tot Granulo (auto) 0.9 Sodium 137 Potassium 4.6 Chloride 104 Carbon Dioxide 26 Anion Gap 7 BUN 28 Creatinine 0.9 Estimated Creat Clear 36.50 Estimated GFR 64 Glucose 169 H Calcium 9.2 Urine Color Yellow Yellow Urine Appearance Cloudy A Cloudy A Urine pH 6.0 6.5 Ur Specific [place] 1.025 >= 1.030 Urine Protein 1+ A 2+ A Urine Glucose (UA) Negative Negative Urine Ketones Trace A 1+ A Urine Blood 1+ A 2+ A Urine Nitrite Positive A Positive A Urine Bilirubin Negative Negative Urine Urobilinogen 0.2 0.2 Ur Leukocyte Esterase 2+ A 1+ A Urine RBC 0-2 2-5 A Urine WBC 25-50 A 25-50 A Ur Squamous Epith Cells Moderate A None Urine Bacteria Many A None Diagnostic results Additional Comments: An AP pelvis, AP and cross-table lateral view of the right hip show a valgus impacted right femoral neck fracture. There is no obvious pathologic lesion, no pre-existing hip joint arthritis. AP and transscapular Y-views of the right shoulder show a nondisplaced 3 part proximal humerus fracture. CT scan of the right shoulder shows the three-part proximal humerus fracture is nondisplaced, there is no head splitting component. Assessment and Plan Assessment and plan (1) Closed right humeral fracture: Status: Acute Total time spent: Total time spent is greater than 50% in coordination of care (as documented) at patient's floor/unit and/or counseling patient: (2) Fracture of hip, right, closed: Status: Acute Total time spent: Total time spent is greater than 50% in coordination of care (as documented) at patient's floor/unit and/or counseling patient: (3) Hypothyroid: Status: Acute Total time spent: Total time spent is greater than 50% in coordination of care (as documented) at patient's floor/unit and/or counseling patient: (4) Depression: Status: Acute Total time spent: Total time spent is greater than 50% in coordination of care (as documented) at patient's floor/unit and/or counseling patient: Plan Assessment: 1. Valgus impacted right femoral neck fracture 2. Nondisplaced 3 part proximal humerus fracture Plan: 1. Cemented bipolar hemiarthroplasty 2. We will plan non operative treatment for her proximal humerus fracture The patient has been medically cleared for surgery. Therefore, we will plan bipolar hemiarthroplasty today.
--- NOTE | 2023-11-01 15:21 | PM.ORPRC ---
Procedure Note Date of procedure: 11/01/23 Procedure: PREOPERATIVE DIAGNOSIS: Right hip valgus impacted femoral neck fracture POSTOPERATIVE DIAGNOSIS: Right hip valgus impacted femoral neck fracture NAME OF OPERATION: Right hip cemented bipolar hemiarthroplasty SURGEON: Emiliano Roa MD TRAIL MAINTENANCE WORKER: Jacky Padilla PA-C IMPLANTS: 1. Gray cemented # 4 standard collared cemented stem 2. 28 + 1.5 cobalt chrome femoral head 3. 44 mm bipolar component ANESTHESIA: Spinal ESTIMATED BLOOD LOSS: 200 cc COMPLICATIONS: None SPECIMENS: None DRAINS: None PREOPERATIVE ANTIBIOTICS: Ancef 1 g INDICATIONS: The patient is a 83-year-old who fell sustaining a right hip femoral neck fracture. The patient was admitted for workup and management. They have been medically cleared for surgery. Operative intervention was recommended. The risks, benefits and expected outcomes were discussed in detail. These included but were not limited to: Infection, bleeding, injury to blood vessel or nerve, venous thromboembolism. All questions were answered to their satisfaction. Use of an housing assistant property manager was necessary throughout the case for patient positioning and safety, soft tissue retraction and closure. PROCEDURE: Spinal anesthesia was administered. The patient was placed supine on the [place] table. The housing assistant property manager made sure the patient was properly positioned. The hip was prepped and draped in the usual sterile fashion. The image intensifier was brought in for a perfect AP pelvis and a perfect double tear drop AP view of each hip which were used for intraoperative templating with our fluoroscopic guide. An oblique incision was made 3 cm distal and 3 cm lateral to the anterior superior iliac spine. The housing assistant property manager retracted the soft tissues to protect them. Subcutaneous dissection was taken with electrocautery to the superficial fascia. The fascia was divided in line with the incision. Blunt dissection was carried medially to the tensor fascia peggy and sartorius interval. Deep dissection was carried with electrocautery. The circumflex vessels were cauterized and divided. The capsule was exposed and then divided in a T-fashion, tagged with #1 Ethibond sutures. Retractors were placed in the joint, held by the housing assistant property manager. The corkscrew was placed in the femoral head. The neck cut was made in the subcapital region. We made a second neck cut more distal. The napkin ring of bone was removed. The femoral head was removed intact. The limb was placed in 140 degrees of external rotation, maximum extension and adduction. A significant amount of time was spent releasing the capsule to allow us to deliver the femur into the wound and complete the femoral side safely. Retractors were held by the housing assistant property manager throughout the femoral preparation. The gill box fixer and canal finder were used. Broaches were used to a stable size. The calcar reamer was used. Trial components were placed. The hip was reduced and was found to be stable with appropriate soft tissue tension. Length and offset had been nicely restored using the image intensifier and our fluoroscopic guide. Trial components were removed. The cement restrictor was placed. The canal was irrigated with pulse lavage then thoroughly dried. Cement was placed with the cement gun and hand pressurized. The # 4 Gray cemented stem was placed in the canal. Excessive cement was removed, the cement was allowed to harden. The 28 mm + 1.5 cobalt chrome femoral head and the 44 mm bipolar component were placed. The hip was reduced and again was found to be stable with appropriate soft tissue tension. Leg lengths appear equal. The housing assistant property manager irrigated the wound with 3 liters of normal saline via pulse lavage. The housing assistant property manager repaired the anterior capsule with a #1 Vicryl and our previously placed Ethibond sutures. The housing assistant property manager closed the fascia over the tensor fascia peggy with a #1 PDO Stratafix, subcutaneous tissues with 2-0 Vicryl, skin with a running 3-0 Stratafix and glue. A dry dressing was applied by the housing assistant property manager. Sponge and needle counts were correct x 2. The patient tolerated the procedure well; there were no apparent complications. They were awakened and extubated in the operating room, sent to the Post-Anesthesia Care Unit in satisfactory condition. PLAN: 1. The patient will be mobilized with physical therapy, weight-bearing as tolerates on the right lower extremity, nonweightbearing on the right upper extremity. We will limit her right shoulder range of motion for the next 6 weeks. She can work on active range of motion of the elbow, wrist and fingers as the shoulder pain subsides. 2. Xarelto x 5 days then aspirin x 30 days will be used for DVT prophylaxis 3. The patient will be discharged to a residential facility once medically appropriate
[2023-11-01] MEDS: CEFAZOLIN 2 GM INJ IVP (15:53)
[2023-11-01] MEDS: TRANEXAMIC ACID 100 MG/ML INJ 1000 MG IV (15:55)
[2023-11-01] MEDS: LACTATED RINGERS 1000 ML 1,000 ML 100 ML IV ×2 (16:20→18:28)
--- NOTE | 2023-11-01 16:21 | CRLHL7_ITS ---
For Patients: As a result of the Cures Act, medical imaging exams and procedure reports are released immediately into your electronic medical record. You may view this report before your referring provider. If you have questions, please contact your health care provider. Indication: Hip replacement surgery Technique: AP hip fluoroscopic images. Fluoroscopy time 23.3 seconds. Findings/Impression: Hardware from a right total hip arthroplasty is in satisfactory position. Dictated by Frederick Roper MD @ 11/04/2023 9:06:39 AM (Electronically Signed)
--- NOTE | 2023-11-01 16:41 | P.NB_ITS ---
Nerve Block Nerve Block Time Seen by Provider: 15:50 Date Seen: 11/01/23 Type of block requested by surgeon for post-operative analgesia: CHANTAL/LFCN Side: right Time out performed: Yes Verification of patient name: Yes Verification of date of : Yes Site marking: site marked Name of person performing procedure: Lennie Continuous monitoring Was continuous monitoring of O2 sat, B/P, monitor and storage bin tender, recorded every 15 minutes?: Yes Procedure Checklist: sterile prep, needles and gloves Ultrasound guided. Images saved: Yes Medications given in 5ml increments after negative aspiration: Ropivicaine %: 0.5 mL: 20 Needle gauge: 20 Decadron (mg): 10 Precedex (mcg): 25 Patient tolerated procedure well: Yes Block Charges Block Charge (with Pro Fee): Other Periph Nerve Block Use of Ultrasound Machine for Block: Yes- US Guidance/pain block
--- NOTE | 2023-11-01 17:48 | CRLHL7_ITS ---
For Patients: As a result of the Cures Act, medical imaging exams and procedure reports are released immediately into your electronic medical record. You may view this report before your referring provider. If you have questions, please contact your health care provider. Indication: Postop Technique: AP hip centered pelvis and lateral view right hip Findings/Impression: Hardware from a right bipolar hip arthroplasty is in satisfactory position. Bone alignment is normal. No sign of acute fracture. Postop changes are within normal limits. Dictated by Frederick Roper MD @ 11/04/2023 9:07:42 AM (Electronically Signed)
--- NOTE | 2023-11-01 18:43 | P.ANES_ITS ---
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
--- NOTE | 2023-11-01 18:43 | W.ANESCHARGE ---
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
--- NOTE | 2023-11-01 18:48 | PC.NURSE ---
Addendum entered by Jamaica Ramos RN 11/01/23 19:56: Pt arrived to unit at 1910, awake but drowsy. No c/o pain or nausea. VSS. Bilat hands cold and not getting a good reading. After warm blankets and silver rudi application, pulse reads 66 and spo2 dropping to 84% at rest. 0.75L/min applied via NC, spo2 93%. Pringle and IV patent. Tolerating ice chips. Original Note: Nursing Care Hours: [id number] Pt this shift alert and oriented, calm and cooperative. Continued with bedrest, tolerating turning and repositioning well. No c/o pain. Pain meds given prophylactically before CT scan. Pringle patent. Low u/o at 100ml after 6 hours, web content writer requested fluids be started. LR ordered at 125ml. CMS and cap refill WNL on all extremities. VSS. Instructed on IS, reaching 1000ml. Taken to OR around 1530.
[2023-11-01] MEDS: LACTATED RINGERS 1000 ML 1,000 ML 75 ML IV (23:17)
[2023-11-01] MEDS: CEFAZOLIN 1 GM in 0.9 % SODIUM CHLORIDE Mini-bag 100 ML IVPB (23:17)
[2023-11-02] VITALS (8 sets, daily range): BP systolic 99–133; BP diastolic 44–72; PULSE 67–92; RESP 12–20; TEMP 36.5–37.4; O2SAT 91–97
[2023-11-02] MEDS: cefTRIAXone 1 GM in 0.9 % SODIUM CHLORIDE Mini-bag 100 ML IVPB (00:33)
[2023-11-02] MEDS: CEFAZOLIN 1 GM in 0.9 % SODIUM CHLORIDE Mini-bag 100 ML IVPB (04:58)
[2023-11-02] MEDS: LEVOTHYROXINE 75 MCG TABLET PO (06:42)
--- NOTE | 2023-11-02 07:46 | PC.NURSE ---
End of shift - Pt arrived from PACU at approximately 1910. Family at bedside, pt able to follow directions, but appeared to be fatigued and sedate. Ice pack on site, dressing CDI, pedal pulse present. Pt denied pain in surgical site. Tolerating O2 via nasal cannula to maintain saturation above 90% per MD order. Pt observed to sleep, reported little appetite. Pt appeared slightly disoriented and sedate during shift evidenced by garbled speech and repetitious questions, cognition and mentation appeared to improve with wakefulness and anesthesia recovery. Pringle catheter noted to be patent and draining. Pt appears to be resting comfortably in bed with call light within reach at end of shift.
--- NOTE | 2023-11-02 07:55 | PC.NURSE ---
Expanse downtime approximately [id number] 11/02/2023
[2023-11-02] MEDS: ACETAMINOPHEN 325 MG TABLET 650 MG PO ×3 (08:12→21:25)
[2023-11-02] MEDS: RIVAROXABAN 10 MG TABLET PO (08:13)
[2023-11-02] MEDS: OXYCODONE 5 MG TABLET PO ×3 (08:13→21:26)
[2023-11-02] MEDS: SENNOSIDES 1 TAB TABLET 2 TAB PO ×2 (08:13→21:25)
[2023-11-02] MEDS: ESCITALOPRAM 10 MG TABLET PO (08:14)
[2023-11-02 08:26] LABS: Anion Gap 5 mEq/L (7-15); Blood Urea Nitrogen* 18 mg/dL (7-30); Calcium* 8.4 mg/dL (8.4-10.6); Carbon Dioxide* 26 mmol/L (20-32); Chloride* 107 mmol/L (96-114); Creatinine* 0.7 mg/dL (0.5-1.5); Estimated Glomerular Filt Rate 87 ml/min; Glucose* 154 mg/dL (60-115); Potassium* 4.3 mmol/L (3.6-5.1); Sodium* 138 mmol/L (135-149)
[2023-11-02 08:54] LABS: Hematocrit 35.7 % (33.0-51.0); Hemoglobin* 11.4 gm/dL (12.0-16.0); Mean Corpuscular HGB Conc 32 gm/dL (32-36); Mean Corpuscular Hemoglobin 31 pg (26-34); Mean Corpuscular Volume 98 fL (80-100); Platelet Count* 195 K/uL (140-440); Red Blood Count 3.66 m/uL (4.00-5.20); White Blood Count* 11.26 K/uL (4.50-11.00)
[2023-11-02 09:01] LABS: Slide Review Reflex Yes
[2023-11-02 09:02] LABS: Slide Review Acceptable Review (Acceptable)
[2023-11-02] MEDS: 0.9 % SODIUM CHLORIDE 250 ml IV (12:02)
[2023-11-02] MEDS: LACTATED RINGERS 1000 ML 1,000 ML 75 ML IV (12:37)
--- NOTE | 2023-11-02 12:54 | P.ORPN_ITS ---
Subjective Subjective Date Seen: 11/02/23 Principal diagnosis: POD1, right bipolar hemiarthroplasty, closed tx right proximal humerus fx Interval history: Patient reports doing well. No acute events over night. Pain is managed mole both involving the right thigh laterally, and right humerus anterior laterally. Pain managed with scheduled and PRN medications, ice. DVT prophylaxis: Rivaroxaban, bilateral knee high Amador stockings, SCDs, walking. Complaining of mild lightheadedness/dizziness. Denies fevers, chills, aches, N/V, CP, SOB/NAPIER. Staff note softer blood pressures. Staff report plan is to remove Pringle catheter now that she is moving well. Ortho Exam Narrative Exam Narrative: Right hip: -Patient appears comfortable in recliner; no apparent acute distress; family present -Alert and oriented times 3 -Operative hip mildly swollen; soft tissues supple; no obvious erythema. Small area of ecchymosis posterior hip region. Warmth appropriate -Surgical dressing clean, dry, intact; no obvious drainage, no erythematous streaking peripheral to the bandage -Bilateral calves soft and supple; no significant swelling, edema, tenderness, erythema, discoloration, warmth, or palpable cords. No Amador socks in place -2+ DP/PT pulses, intact dermatomes and myotomes distally (5/5 strength). Noted numbness about the lateral femoral cutaneous nerve distribution. Right shoulder: Tender anterior and anterolateral proximal humerus No significant swelling, erythema, or ecchymosis Shoulder immobilizer in place No pain along the scapular spine, acromion, or clavicle With her shoulder in neutral rotation, mild increase in pain anterior shoulder 2+ radial pulse, pink warm digits with brisk cap refill; intact dermatomes and myotomes distally including the radial, ulnar, and median nerve distributions Const Vital Signs, click to edit/add: Vital Signs - 24 hr 11/01/23 15:00 11/01/23 15:00 11/01/23 15:00 Temperature Pulse Rate Pulse Rate [Pulse Oximeter] 92 92 Respiratory Rate 16 16 Blood Pressure Blood Pressure [Left Arm] 131/64 Pulse Oximetry 97 97 Oxygen Delivery Method Room Air Oxygen Flow Rate 11/01/23 18:30 11/01/23 18:35 11/01/23 18:40 Temperature 98 F Pulse Rate 68 71 62 Pulse Rate [Pulse Oximeter] Respiratory Rate 14 14 12 Blood Pressure 90/48 L 115/67 120/61 Blood Pressure [Left Arm] Pulse Oximetry 95 95 94 Oxygen Delivery Method Room Air Room Air Room Air Oxygen Flow Rate 11/01/23 18:45 11/01/23 18:50 11/01/23 18:55 Temperature Pulse Rate 64 72 68 Pulse Rate [Pulse Oximeter] Respiratory Rate 12 12 12 Blood Pressure 107/59 L 101/55 L 114/60 Blood Pressure [Left Arm] Pulse Oximetry 94 95 94 Oxygen Delivery Method Room Air Room Air Room Air Oxygen Flow Rate 11/01/23 19:00 11/01/23 19:25 11/01/23 19:37 Temperature 97.1 F L 96.8 F L 97.3 F L Pulse Rate 73 70 Pulse Rate [Pulse Oximeter] Respiratory Rate 12 16 11 L Blood Pressure 120/60 129/76 138/67 Blood Pressure [Left Arm] Pulse Oximetry 95 93 Oxygen Delivery Method Room Air Room Air Room Air Oxygen Flow Rate 11/01/23 19:40 11/01/23 19:55 11/01/23 20:10 Temperature 96.8 F L Pulse Rate 67 68 62 Pulse Rate [Pulse Oximeter] Respiratory Rate 12 16 Blood Pressure 145/68 H 148/69 H 144/71 H Blood Pressure [Left Arm] Pulse Oximetry 93 92 97 Oxygen Delivery Method Room Air Nasal Cannula Nasal Cannula Oxygen Flow Rate 1 1 11/01/23 20:40 11/01/23 21:10 11/01/23 22:10 Temperature 97.2 F L 98.1 F Pulse Rate 65 67 64 Pulse Rate [Pulse Oximeter] Respiratory Rate 12 12 12 Blood Pressure 143/76 H 134/63 128/59 L Blood Pressure [Left Arm] Pulse Oximetry 97 98 95 Oxygen Delivery Method Nasal Cannula Nasal Cannula Nasal Cannula Oxygen Flow Rate 1 1 1 11/01/23 23:10 11/01/23 23:43 11/02/23 00:10 Temperature 97.7 F Pulse Rate 66 67 Pulse Rate [Pulse Oximeter] Respiratory Rate 12 12 Blood Pressure 105/53 L 115/66 Blood Pressure [Left Arm] Pulse Oximetry 96 95 96 Oxygen Delivery Method Nasal Cannula Nasal Cannula Nasal Cannula Oxygen Flow Rate 1 1 1 11/02/23 01:10 11/02/23 07:00 11/02/23 07:00 Temperature 98.1 F 99.4 F Pulse Rate 74 Pulse Rate [Pulse Oximeter] 92 92 Respiratory Rate 16 16 16 Blood Pressure 124/72 Blood Pressure [Left Arm] 133/62 Pulse Oximetry 97 97 Oxygen Delivery Method Nasal Cannula Room Air Oxygen Flow Rate 1 11/02/23 07:00 11/02/23 11:00 11/02/23 12:00 Temperature 99 F Pulse Rate Pulse Rate [Pulse Oximeter] 76 Respiratory Rate 16 16 Blood Pressure Blood Pressure [Left Arm] 103/44 L 99/44 L Pulse Oximetry 97 91 Oxygen Delivery Method Room Air Room Air Oxygen Flow Rate Assessment and Plan Assessment and plan (1) Closed right humeral fracture: Problem details: CT shows subtle nondisplaced 3 part fracture of the proximal humeral neck and tuberosities Per orthopedic surgery, non operative treatment for proximal humerus fracture - continue shoulder immobilizer, okay for her to come out of the wrist component of the shot will be discharged to allow her arm to relax at her side, where she can perform gentle elbow motion. Patient needs reminders to allow her shoulder/traps to relax Pain management (will consider lidocaine patch and 2.5 mg oxycodone as needed), immobilization PT/OT Status: Acute (2) Fracture of hip, right, closed: Problem details: Plain film shows impacted fracture of the right femoral neck Per Orthopedic surgery, to OR this afternoon for cemented bipolar hemiarthroplasty (anterior approach) Pain management (will consider lidocaine patch and 2.5 mg oxycodone as needed) PT/OT postoperatively director of special services for discharge planning/placement needs - family is choosing to care for her at their home versus SNF Status: Acute (3) Hypothyroid: Problem details: Continue levothyroxine Status: Acute (4) Depression: Problem details: Continue escitalopram Status: Acute Plan - Complete 23 hour perioperative antibiotics. - PT/OT consult for education and assistance. - Social work consult for discharge planning - per patient's daughter, the will plan to care for patient at home versus SNF - Prescribed analgesics as needed - limit, minimize oxycodone use, consider 2.5 mg oxycodone as needed. - DVT prophylaxis: Rivaroxaban, bilateral knee high Amador Hose stockings and SCDs - Anticipation is for discharge to home with family if the patient remains medically stable, pain is controlled, and they are safe with mobilization.
--- NOTE | 2023-11-02 13:46 | PM.IMPN1 ---
Progress Note: A&P Assessment and plan (1) Closed right humeral fracture: Problem details: CT shows subtle nondisplaced 3 part fracture of the proximal humeral neck and tuberosities Per orthopedic surgery, non operative treatment for proximal humerus fracture - continue shoulder immobilizer, okay for her to come out of the wrist component of the shot will be discharged to allow her arm to relax at her side, where she can perform gentle elbow motion. Patient needs reminders to allow her shoulder/traps to relax Pain management (lidocaine patch and 2.5 mg oxycodone as needed), immobilization PT/OT Status: Acute (2) Fracture of hip, right, closed: Problem details: Plain film shows impacted fracture of the right femoral neck POD# 1 s/p right bipolar hemiarthroplasty Pain management scheduled Tylenol, lidocaine patch, small dose oxycodone (given petite size and hypotension), p.r.n. NS bolus, monitoring pressures PT/OT postoperatively business services sales representative for discharge planning/placement needs - family is choosing to care for her at their home versus SNF Status: Acute (3) Hypothyroid: Problem details: Continue levothyroxine Status: Acute (4) Depression: Problem details: Continue escitalopram Status: Acute Plan Continue therapies, patient and family would like for her to discharge to daughter's home, possibly Friday Time Spent With Patient Total time spent: Total time spent caring for the patient today was 45 minutes. This includes time spent for the visit reviewing the chart, time spent during the visit, time spent after the visit and documentation and planning in coordination of care. Subjective Date Seen: 11/02/23 Interval history: Patient is seen sitting up in bed this morning. Reports feeling better this morning. Right hip and right shoulder pain is currently appropriately managed. Denies headache or dizziness. Tolerating orals without nausea or vomiting. Exam Narrative: Exam Narrative: PHYSICAL EXAM General: Pleasant, NAD Cardiovascular: RRR, S1S2. No pitting edema Pulmonary: CTA bilaterally without rhonchi, rales, expiratory wheezes. No dyspnea on room air Neurological: Alert, answering questions appropriately, cranial nerves intact, no focal findings Extremities: Right shoulder splinted. No edema or erythema of lower extremities. Postoperative dressing in place, dry. Neurovascularly intact Skin: Warm, dry. Const: Vital Signs, click to edit/add: Vital Signs - 24 hr 11/01/23 15:00 11/01/23 15:00 11/01/23 15:00 Temperature Pulse Rate Pulse Rate [Pulse Oximeter] 92 92 Respiratory Rate 16 16 Blood Pressure Blood Pressure [Le ft Arm] 131/64 Pulse Oximetry 97 97 Oxygen Delivery Me thod Room Air Oxygen Flow Rate 11/01/23 18:30 11/01/23 18:35 11/01/23 18:40 Temperature 98 F Pulse Rate 68 71 62 Pulse Rate [Pulse Oximeter] Respiratory Rate 14 14 12 Blood Pressure 90/48 L 115/67 120/61 Blood Pressure [Le ft Arm] Pulse Oximetry 95 95 94 Oxygen Delivery Me thod Room Air Room Air Room Air Oxygen Flow Rate 11/01/23 18:45 11/01/23 18:50 11/01/23 18:55 Temperature Pulse Rate 64 72 68 Pulse Rate [Pulse Oximeter] Respiratory Rate 12 12 12 Blood Pressure 107/59 L 101/55 L 114/60 Blood Pressure [Le ft Arm] Pulse Oximetry 94 95 94 Oxygen Delivery Me thod Room Air Room Air Room Air Oxygen Flow Rate 11/01/23 19:00 11/01/23 19:25 11/01/23 19:37 Temperature 97.1 F L 96.8 F L 97.3 F L Pulse Rate 73 70 Pulse Rate [Pulse Oximeter] Respiratory Rate 12 16 11 L Blood Pressure 120/60 129/76 138/67 Blood Pressure [Le ft Arm] Pulse Oximetry 95 93 Oxygen Delivery Me thod Room Air Room Air Room Air Oxygen Flow Rate 11/01/23 19:40 11/01/23 19:55 11/01/23 20:10 Temperature 96.8 F L Pulse Rate 67 68 62 Pulse Rate [Pulse Oximeter] Respiratory Rate 12 16 Blood Pressure 145/68 H 148/69 H 144/71 H Blood Pressure [Le ft Arm] Pulse Oximetry 93 92 97 Oxygen Delivery Me thod Room Air Nasal Cannula Nasal Cannula Oxygen Flow Rate 1 1 11/01/23 20:40 11/01/23 21:10 11/01/23 22:10 Temperature 97.2 F L 98.1 F Pulse Rate 65 67 64 Pulse Rate [Pulse Oximeter] Respiratory Rate 12 12 12 Blood Pressure 143/76 H 134/63 128/59 L Blood Pressure [Le ft Arm] Pulse Oximetry 97 98 95 Oxygen Delivery Me thod Nasal Cannula Nasal Cannula Nasal Cannula Oxygen Flow Rate 1 1 1 11/01/23 23:10 11/01/23 23:43 11/02/23 00:10 Temperature 97.7 F Pulse Rate 66 67 Pulse Rate [Pulse Oximeter] Respiratory Rate 12 12 Blood Pressure 105/53 L 115/66 Blood Pressure [Le ft Arm] Pulse Oximetry 96 95 96 Oxygen Delivery Me thod Nasal Cannula Nasal Cannula Nasal Cannula Oxygen Flow Rate 1 1 1 11/02/23 01:10 11/02/23 07:00 11/02/23 07:00 Temperature 98.1 F 99.4 F Pulse Rate 74 Pulse Rate [Pulse Oximeter] 92 92 Respiratory Rate 16 16 16 Blood Pressure 124/72 Blood Pressure [Le ft Arm] 133/62 Pulse Oximetry 97 97 Oxygen Delivery Me thod Nasal Cannula Room Air Oxygen Flow Rate 1 11/02/23 07:00 11/02/23 11:00 11/02/23 12:00 Temperature 99 F Pulse Rate Pulse Rate [Pulse Oximeter] 76 Respiratory Rate 16 16 Blood Pressure Blood Pressure [Le ft Arm] 103/44 L 99/44 L Pulse Oximetry 97 91 Oxygen Delivery Me thod Room Air Room Air Oxygen Flow Rate Labs Labs: Laboratory Results - last 24 hr 11/02/23 06:08 WBC 11.26 H RBC 3.66 L Hgb 11.4 L Hct 35.7 MCV 98 MCH 31 MCHC 32 Plt Count 195 Diff Slide Review Acceptable Review Sodium 138 Potassium 4.3 Chloride 107 Carbon Dioxide 26 Anion Gap 5 L BUN 18 Creatinine 0.7 Estimated Creat Clear 36.50 Estimated GFR 87 Glucose 154 H Calcium 8.4
[2023-11-02] MEDS: LIDOCAINE 5% PATCH 1 PATCH TRANSDERMA (14:29)
--- NOTE | 2023-11-02 19:47 | PC.NURSE ---
Nursing Care Hours: [id number] Pt this shift calm and cooperative, alert and oriented with occasional forgetfulness. Up with 1 assist using quad walker and gait belt. Pt needing frequent reminders to not use R hand while ambulating or doing cares. DC'd thrasher, void x2. Tolerating regular diet. Pain reported at 8-10/10 but pt able to converse normally, VSS, no signs of distress, see pain assessment note. Ice to R hip. Lidocaine patch to R hip and R shoulder. IV fluids running, encouraged to drink more fluids PO. One episode of hypotension so 250ml bolus given and decrease oxycodone dose, no issue since. CMS intact. Cap refill prolonged in fingers, pt reports Raynaud syndrome. Tips of fingers are blue in color. Warm blankets provided relief.
[2023-11-03] MEDS: cefTRIAXone 1 GM in 0.9 % SODIUM CHLORIDE Mini-bag 100 ML IVPB (00:10)
[2023-11-03] MEDS: SODIUM CHLORIDE 0.9 % (FLUSH) 10 ML SYRINGE 5 ML IVF ×2 (00:15→10:18)
[2023-11-03 00:18] VITALS: BP 106/45; PULSE 86; RESP 20; TEMP 37.1; O2SAT 91
[2023-11-03] MEDS: ACETAMINOPHEN 325 MG TABLET 650 MG PO ×3 (02:09→16:18)
[2023-11-03 02:17] VITALS: BP 126/60; PULSE 85; RESP 20; TEMP 37.3; O2SAT 91
[2023-11-03] MEDS: LEVOTHYROXINE 75 MCG TABLET PO (05:50)
--- NOTE | 2023-11-03 06:10 | PC.NURSE ---
End of shift [id number] ? Pt alert, oriented to time, place. Mildly disoriented to self and situation. Pt misstated her age multiple times to RN, but was able to self-correct after conversing with RN. Pt also needed to be reoriented to her room and reminded of call light use, bed alarms, and assistance to get out of bed. Pt up with standby assistance and 4-legged walker. Pt initially reported pain in R hip and R shoulder as 8/10. Medication given per MAR with pt rating pain as 1/10. Tolerating RA, regular diet/fluids. Pedal pulse present, dressing CDI, ice pack in place. Shoulder immobilizer inplace. Pt observed to sleep, appears to be resting comfortably in bed with call light in place. ?
[2023-11-03 06:25] LABS: Hematocrit 34.9 % (33.0-51.0); Hemoglobin* 11.3 gm/dL (12.0-16.0); Mean Corpuscular HGB Conc 32 gm/dL (32-36); Mean Corpuscular Hemoglobin 31 pg (26-34); Mean Corpuscular Volume 97 fL (80-100); Platelet Count* 216 K/uL (140-440); White Blood Count* 10.48 K/uL (4.50-11.00)
[2023-11-03 06:40] LABS: Slide Review Reflex No
[2023-11-03 06:56] LABS: Chloride* 109 mmol/L (96-114); Potassium* 3.8 mmol/L (3.6-5.1); Sodium* 139 mmol/L (135-149)
[2023-11-03 06:59] LABS: Anion Gap 2 mEq/L (7-15); Carbon Dioxide* 28 mmol/L (20-32); Creatinine* 0.7 mg/dL (0.5-1.5); Estimated Glomerular Filt Rate 87 ml/min
[2023-11-03 07:00] LABS: Blood Urea Nitrogen* 18 mg/dL (7-30); Calcium* 8.7 mg/dL (8.4-10.6); Glucose* 118 mg/dL (60-115)
--- NOTE | 2023-11-03 07:11 | P.IMPN_ITS ---
Progress Note: A&P Assessment and plan (1) Closed right humeral fracture: Problem details: CT shows subtle nondisplaced 3 part fracture of the proximal humeral neck and tuberosities Per orthopedic surgery, non operative treatment for proximal humerus fracture - continue shoulder immobilizer, okay for her to come out of the wrist component of the shot will be discharged to allow her arm to relax at her side, where she can perform gentle elbow motion. Patient needs reminders to allow her fred ulder/traps to relax Pain management (lidocaine patch and 2.5 mg oxycodone as needed), immobilization PT/OT Status: Acute (2) Fracture of hip, right, closed: Problem details: Plain film shows impacted fracture of the right femoral neck POD# 2 right bipolar hemiarthroplasty - anterior approach Pain management scheduled Tylenol, lidocaine patch, small dose oxycodone (given petite size and hypotension), p.r.n. NS bolus, monitoring pressures PT/OT postoperatively non emergency services ambulance driver for discharge planning/placement needs - family is choosing to care for her at their home versus SNF Status: Acute (3) Hypothyroid: Problem details: Continue levothyroxine Status: Acute (4) Depression: Problem details: Continue escitalopram Status: Acute (5) UTI (urinary tract infection): Problem details: UC grew E Coli, sensitive to ceftriaxone, continue Status: Acute Plan Continue therapies, patient and family would like for her to [facility], possibly Friday Time Spent With Patient Total time spent: Total time spent caring for the patient today was 45 minutes. This includes time spent for the visit reviewing the chart, time spent during the visit, time spent after the visit and documentation and planning in coordination of care. Exam Const: Vital Signs, click to edit/add: Vital Signs - 24 hr 11/02/23 11:00 11/02/23 12:00 11/02/23 15:00 Temperature 99 F Pulse Rate [Pulse Oximeter] 76 Respiratory Rate 16 16 Blood Pressure [Le ft Arm] 103/44 L 99/44 L Pulse Oximetry 91 Oxygen Delivery Me thod Room Air 11/02/23 15:00 11/02/23 15:00 11/02/23 22:52 Temperature 98.8 F Pulse Rate [Pulse Oximeter] 82 84 Respiratory Rate 16 16 20 Blood Pressure [Le ft Arm] 121/57 L 122/55 L Pulse Oximetry 92 92 92 Oxygen Delivery Me thod Room Air Room Air Room Air 11/02/23 23:11 11/03/23 00:18 11/03/23 02:17 Temperature 98.8 F 99.1 F Pulse Rate [Pulse Oximeter] 86 85 Respiratory Rate 20 20 20 Blood Pressure [Le ft Arm] 106/45 L 126/60 Pulse Oximetry 92 91 91 Oxygen Delivery Me thod Room Air Room Air Room Air Labs Labs: Laboratory Results - last 24 hr 11/02/23 11/03/23 06:08 05:54 WBC 11.26 H 10.48 RBC 3.66 L 3.60 L Hgb 11.4 L 11.3 L Hct 35.7 34.9 MCV 98 97 MCH 31 31 MCHC 32 32 Plt Count 195 216 Diff Slide Review Acceptable Review Sodium 138 139 Potassium 4.3 3.8 Chloride 107 109 Carbon Dioxide 26 28 Anion Gap 5 L 2 L BUN 18 18 Creatinine 0.7 0.7 Estimated Creat Clear 36.50 36.50 Estimated GFR 87 87 Glucose 154 H 118 H Calcium 8.4 8.7
[2023-11-03 07:45] VITALS: BP 103/52; PULSE 85; PULSE 94; RESP 18; RESP 20; TEMP 36.9; O2SAT 94
[2023-11-03] MEDS: ESCITALOPRAM 10 MG TABLET PO (10:16)
[2023-11-03] MEDS: RIVAROXABAN 10 MG TABLET PO (10:17)
[2023-11-03 11:00] VITALS: BP 111/56; PULSE 87; RESP 18; TEMP 36.9; O2SAT 95
--- NOTE | 2023-11-03 12:04 | P.ORPN_ITS ---
Subjective Subjective Date Seen: 11/03/23 Principal diagnosis: POD2, right bipolar hemiarthroplasty, closed tx right proximal humerus fx Interval history: Patient reports doing okay. More pain today in the right proximal arm. Still having some discomfort in the right thigh as well. No acute events over night. States she is tired since she was up early this morning. Pain managed with scheduled and PRN medications, ice. DVT prophylaxis: Rivaroxaban, bilateral knee high Amador stockings, SCDs, walking. Denies fevers, chills, aches, N/V, CP, SOB/NAPIER, or lightheadedness. Ortho Exam Narrative Exam Narrative: Right hip/lower leg: -Patient sitting on chair in bathroom; daughter and OT present. No apparent acute distress. No shoulder immobilizer on at this time. She is moving her right arm frequently as she is right-hand dominant. Requiring numerous reminders to stop moving her right arm. -Alert and oriented times 3 -Operative hip mildly swollen; soft tissues supple; no obvious erythema. No significant ecchymosis. Warmth appropriate -Surgical dressing clean, dry, intact; no obvious drainage, no erythematous streaking peripheral to the bandage -Bilateral calves soft and supple; no significant swelling, edema, tenderness, erythema, discoloration, warmth, or palpable cords -2+ DP/PT pulses, intact dermatomes and myotomes distally (5/5 strength). Mild numbness about the lateral femoral cutaneous nerve distribution. Right shoulder: - mild discomfort to palpation proximal humerus - no gross deformity right shoulder/proximal humerus -no significant swelling or ecchymosis noted - full and unimpaired elbow active motion - no significant discomfort with shoulder internal and external rotation in a 90 degree arc when the shoulder is adducted to her side - 2+ radial pulse, pink warm digits with brisk cap refill; intact dermatomes and myotomes distally including the radial, ulnar, and median nerve distributions Const Vital Signs, click to edit/add: Vital Signs - 24 hr 11/02/23 15:00 11/02/23 15:00 11/02/23 15:00 Temperature Pulse Rate [Pulse Oximeter] 82 Respiratory Rate 16 16 16 Blood Pressure [Left Arm] 121/57 L Pulse Oximetry 92 92 Oxygen Delivery Method Room Air Room Air 11/02/23 22:52 11/02/23 23:11 11/03/23 00:18 Temperature 98.8 F 98.8 F Pulse Rate [Pulse Oximeter] 84 86 Respiratory Rate 20 20 20 Blood Pressure [Left Arm] 122/55 L 106/45 L Pulse Oximetry 92 92 91 Oxygen Delivery Method Room Air Room Air Room Air 11/03/23 02:17 11/03/23 07:45 11/03/23 07:45 Temperature 99.1 F Pulse Rate [Pulse Oximeter] 85 85 Respiratory Rate 20 20 20 Blood Pressure [Left Arm] 126/60 Pulse Oximetry 91 94 Oxygen Delivery Method Room Air Room Air Assessment and Plan Assessment and plan (1) Closed right humeral fracture: Problem details: CT shows subtle nondisplaced 3 part fracture of the proximal humeral neck and tuberosities Per orthopedic surgery, non operative treatment for proximal humerus fracture - continue shoulder immobilizer, okay for her to come out of the wrist component of the shot will be discharged to allow her arm to relax at her side, where she can perform gentle elbow motion. Patient needs reminders to allow her shoulder/traps to relax. Continue pain management (lidocaine patch, Tylenol, and 2.5 mg oxycodone as needed), immobilization. Will be discharged to her daughter's home with home health, PT/OT. Status: Acute (2) Fracture of hip, right, closed: Problem details: Plain film shows impacted fracture of the right femoral neck S/p right bipolar hemiarthroplasty - anterior approach - on Pain management scheduled Tylenol, lidocaine patch, small dose oxycodone (given petite size and hypotension), p.r.n. NS bolus, monitoring pressures PT/OT postoperatively ambulatory services representative for discharge planning/placement needs - family is choosing to care for her at their home versus SNF Status: Acute (3) Hypothyroid: Problem details: Continue levothyroxine Status: Acute (4) Depression: Problem details: Continue escitalopram Status: Acute (5) UTI (urinary tract infection): Problem details: UC grew E Coli, sensitive to ceftriaxone, continue Status: Acute Plan - PT/OT consult for education and assistance. - Prescribed analgesics as needed - minimize narcotic use if possible - DVT prophylaxis: Rivaroxaban, and SCDs. They will use SCDs at home; thus, can discontinue Amador socks when home. - Anticipation is for discharge to home with family, 11/03/2023 if the patient remains medically stable, pain is controlled, and they are safe with mobilization. - I plan to see her 11/11/2023 for postop check. Please obtain AP and scap Y- views of the right shoulder at that visit
--- NOTE | 2023-11-03 12:08 | P.DS_ITS ---
DS: Providers Provider Date Seen: 11/03/23 Date of admission: 11/01/23 01:06 Primary care physician: Not a Local Provider Admitting Clinician: Florin Freeman MD Consults: 11/01/23 07:12 Consult to Physician [CONS] Routine Comment: Consulting Provider: Jacky Padilla Has provider been notified: Yes 11/01/23 19:41 Consult to Occupational Therapy [CONS] Routine Comment: Reason(s) for OT Consult:: Evaluate and Treat Any Restrictions?:: See Comment Comment: evaluate and treat Consult to Physical Therapy [CONS] Routine Comment: Reason(s) for PT Consult:: Evaluate and Treat Any Restrictions?:: See Comment Comment: Weightbear as tolerates right lower extremity. No weight-bearing right upper extremity. Limit right shoulder range of motion. Work on active range of motion of the elbow, wrist and fingers. Consult to Director Of Content And Programming [CONS] Routine Comment: Reason for Consult:: Discharge Planning Needs Possible SNF placement Attending Physician on discharge: Delilah Do [facility], PA-C [facility] Hospitalist Date of Discharge: 11/03/23 DS: Diagnosis Discharge Diagnosis (1) Closed right humeral fracture: Status: Acute Problem details: CT shows subtle nondisplaced 3 part fracture of the proximal humeral neck and tuberosities Per orthopedic surgery, non operative treatment for proximal humerus fracture - continue shoulder immobilizer, okay for her to come out of the wrist component of the shot will be discharged to allow her arm to relax at her side, where she can perform gentle elbow motion. Patient needs reminders to allow her shoulder/traps to relax. Continue pain management (lidocaine patch, Tylenol, and 2.5 mg oxycodone as needed), immobilization. Will be discharged to her daughter's home with home health, PT/OT. (2) Fracture of hip, right, closed: Status: Acute Problem details: Plain film shows impacted fracture of the right femoral neck S/p right bipolar hemiarthroplasty - anterior approach - on 11/01/23 Continue pain management with Tylenol, small dose oxycodone (given petite size and hypotension during hospital course) as needed. Postoperative activities and follow-up per Orthopedic surgery. Patient is discharged to daughter's house with home health and PT/OT. (3) Hypothyroid: Status: Acute Problem details: Continue levothyroxine (4) Depression: Status: Acute Problem details: Continue escitalopram (5) UTI (urinary tract infection): Status: Acute Problem details: UC grew E Coli, sensitivities reviewed. Patient received IV ceftriaxone during hospital course, transitioned to oral cefpodoxime at time of discharge. DS: Summary Hospital Course Hospital Course: [age] year old female was admitted to the medical floor for surgical management right femoral neck fracture and nonsurgical management right humeral fracture. Course of care and details as noted above. Patient is discharged to her daughter's home with home health and PT/OT. Outpatient follow-up in orthopedic clinic next week. As her home residence is in [place], primary care follow-up post hospital stay will be when she returns home. Remainder of chronic medical comorbidities were monitored and managed with home medications. Status at Discharge Functional status at discharge: uses cane/walker Overall status at discharge: patient is not back to baseline Time Spent with Patient Time attestation: Total time spent providing and/or coordinating discharge services: Time spent: Greater than 30 minutes Exam Narrative: Exam Narrative: PHYSICAL EXAM General: Pleasant, conversant, NAD Cardiovascular: RRR Pulmonary: No dyspnea Neurological: Alert, answering questions appropriately Skin: Warm, dry. Const: Vital Signs, click to edit/add: Vital Signs - 24 hr 11/02/23 15:00 11/02/23 15:00 11/02/23 15:00 Temperature Pulse Rate [Pulse Oximeter] 82 Respiratory Rate 16 16 16 Blood Pressure [Le ft Arm] 121/57 L Pulse Oximetry 92 92 Oxygen Delivery Me thod Room Air Room Air 11/02/23 22:52 11/02/23 23:11 11/03/23 00:18 Temperature 98.8 F 98.8 F Pulse Rate [Pulse Oximeter] 84 86 Respiratory Rate 20 20 20 Blood Pressure [Le ft Arm] 122/55 L 106/45 L Pulse Oximetry 92 92 91 Oxygen Delivery Me thod Room Air Room Air Room Air 11/03/23 02:17 11/03/23 07:45 11/03/23 07:45 Temperature 99.1 F Pulse Rate [Pulse Oximeter] 85 85 Respiratory Rate 20 20 20 Blood Pressure [Le ft Arm] 126/60 Pulse Oximetry 91 94 Oxygen Delivery Me thod Room Air Room Air DS: Data Data Completed and Pending Labs on day of discharge: Labs from last 24 hours 07/15/24 05:54 WBC 10.48 RBC 3.60 L Hgb 11.3 L Hct 34.9 MCV 97 MCH 31 MCHC 32 Plt Count 216 Sodium 139 Potassium 3.8 Chloride 109 Carbon Dioxide 28 Anion Gap 2 L BUN 18 Creatinine 0.7 Estimated Creat Clear 36.50 Estimated GFR 87 Glucose 118 H Calcium 8.[address] shoulder: Attestation: I have reviewed the pertinent imaging results. Radiologist's impression: Subtle nondisplaced hairline fracture lucencies through the greater and lesser tuberosity across the surgical neck of the humerus without intra-articular extension to the humeral head. Anatomic glenohumeral alignment. Mild degenerative narrowing of the glenohumeral joint. Maintain acromial distance. Normal AC joint. No fracture of the scapula or clavicle. No fluid in the glenohumeral joint nor subacromial/subdeltoid bursa. IMPRESSION: Subtle nondisplaced three-part fracture of the proximal humeral neck and tuberosities. Knee x-ray: Attestation: I have reviewed the pertinent imaging results. Radiologist's impression: No acute fractures or malalignment. Trace joint effusion. Mild to moderate degenerative changes. Vascular calcifications. IMPRESSION: Trace joint effusion without evidence of acute osseous abnormality. Hip x-ray: Attestation: I have reviewed the pertinent imaging results. Radiologist's impression: FINDINGS: Impacted fracture of the right femoral neck. Joint alignment is maintained. Bilateral hip joint spaces are preserved. Moderate colonic stool load. IMPRESSION: Impacted right femoral neck fracture. Femur x-ray: Attestation: I have reviewed the pertinent imaging results. Radiologist's impression: Right femur 2 views. COMPARISON: None. FINDINGS: Impacted fracture of the right femoral neck. Joint alignment is maintained. Mild soft tissue swelling. IMPRESSION: Impacted right femoral neck fracture. Shoulder x-ray: Attestation: I have reviewed the pertinent imaging results. Radiologist's impression: FINDINGS: Nondisplaced fracture of the right humeral neck. Joint alignment is maintained. AC joint degenerative changes. Soft tissues are unremarkable. IMPRESSION: Nondisplaced right humeral neck fracture. Discharge Plan Discharge Disposition: Home w/ Parent or Adult Date of Admission: 11/01/23 01:06 Attending Provider on Discharge: Delilah Do Consulting Providers: Jacky Padilla Primary Care Provider: Provider,Not a Local Condition: Stable Anticipated Discharge Date/Time: 11/03/23 15:00 Discharge Medications: New sennosides [Senna Lax] 8.6 mg Tablet 8.6 mg PO BID Qty: 60 0RF Rx Instructions: Take while using narcotics to prevent constipation oxycodone 5 mg Tablet 2.5 mg PO Q4H PRN (Reason: Pain) Qty: 20 0RF acetaminophen [Pain Relief (acetaminophen)] 650 mg tablet extended release 650 mg PO Q6H PRNQty: 90 0RF lidocaine 5 % adhesive patch,medicated 1 patch topical DAILY Qty: 15 0RF Rx Instructions: leave on posterior right shoulder for up to 12 hrs cefpodoxime 100 mg tablet 100 mg PO BID Qty: 10 0RF Rx Instructions: must administer with a meal/food aspirin 81 mg tablet,delayed release (DR/EC) 81 mg PO BID Qty: 60 0RF Rx Instructions: Helps to prevent blood clots postoperatively; take TWICE daily. Start after r ivaroxaban is completed. rivaroxaban 10 mg tablet 10 mg PO DAILY Qty: 3 0RF Rx Instructions: Medication for deep vein clot prevention post surgery. Complete this medication before starting Aspirin. Continued levothyroxine 75 mcg tablet 75 mcg PO QAM estradiol 0.01 % (0.1 mg/gram) cream 0.5 appful vaginal 3XW escitalopram oxalate 10 mg tablet 10 mg PO DAILY Discharge Orders: Discharge Order (Routine); Ordered 11/03/23 Ordered By: Delilah Do Patient Education: Acetaminophen (By mouth), Aspirin (By mouth), Oxycodone, Rapid Release (By mouth), Cefpodoxime Proxetil (By mouth) (Vantin), Lidocaine Patch (On the skin), Rivaroxaban (By mouth) (Xarelto, Xarelto Starter Pack), Senna (By mouth) (Sen, Senna-lax), Urinary Tract Infection in Women (GEN), Hip Fracture (GEN), Proximal Humerus Fracture (GEN) Additional Instructions: Take cefpodoxime for your urinary tract infection. You may take Tylenol and Oxycodone as needed for pain. Apply a lidocaine patch behind your right shoulder for shoulder pain. Take Senna twice daily while taking narcotics to prevent constipation. Stop this if you are having loose stools. Follow up in Orthopedic Clinic Activity Level: Activity as Tolerated and Weight Bearing as Tolerated Activity Detail: Right hip: Wound: ? Do not remove original dressing; we will remove this at first postop visit in 1 week. Only remove dressing if integrity is in question. ? No immersing wound in water; showering okay; light scrub with your hand and body soap, rinse, dab dry ? Sutures are under the skin, will dissolve; allow surgical glue to come off naturally; do not scrub the wound or apply ointments/lotions ? Call our office with any redness that streaks, excessive drainage from the wound, or wound gapping. Ice/Elevate: ? Ice as needed for swelling and discomfort (ice pack); elevate extremity frequently above the heart. Motion/Exercise: ? Weight bear as tolerated right lower extremity. She will be unable to use a walker or cane due to right proximal humerus fracture ? Per PT/OT. ? Straight leg raises daily: 1-2 sets of 10 reps Pain Medications: ? Oral narcotic as prescribed. Wean as tolerated. Additional acetaminophen and ibuprofen as needed. Blood Clot Prevention (DVT): ? Medication: 3 days of xarelto, followed by 30 days 81 mg aspirin by mouth twice daily (35 days total treatment) Driving: ? Do not drive while taking narcotic pain medication ? Anticipate 4-6 weeks no driving if operative leg is driving leg Dental: ? No elective dental work for 6 months post-op. If there is an urgent/emergent dental need, contact our office for an antibiotic prescription. Smoking/Alcohol: ? Do not smoke; do no drink alcohol especially when taking postoperative oral narcotic medication Seek Care from you Primary Care Provider if you experience the following issues in the postoperative phase and beyond: ? Bacterial infections such as: pneumonia, bacterial skin infection (cellulitis), UTI, high fever, chills unrelated to the operative body part - call your primary care physician urgently for treatment in hopes to protect your health and the metal implant. Referrals: ? PT, OT per patient preference - evaluate and right hip bipolar hemiarthroplasty- anterior approach (gait training, ROM, ADLs) Vaccines: ? No vaccines until 4-6 weeks postop Follow up: ? PA-C visit 11/11/23 ? Ortho surgeon Dr. Roa follow-up in 6 weeks; repeat radiographs AP pelvis, cross table lateral operative hip; AND 3 views right shoulder Right shoulder: -nonweightbearing right upper extremity. Continue shoulder immobilizer. Okay to come out of the shoulder immobilizer at the wrist to allow the arm to be at her side and provide some distraction to the fracture. Encouraged frequent right elbow active motion (full flexion and extension as tolerated) If there are any acute concerns regarding your surgery, please call our orthopedic clinic ([phone]) Discharge Diet: Regular Follow Up Appointments: Provider,Not a Local [Primary Care Provider] - Jacky Padilla PA-C [Physician Technology Training Associate] - 11/11/23 9:40 am ([facility] ([phone])) Forms: [employer] Info Instructions
--- NOTE | 2023-11-03 14:01 | PC.SOCIAL ---
Addendum entered by LISA Dunn 11/03/23 15:15: Discharge planning: metal casting trades worker faxed the pt's discharge summary to Lillian at [facility], fax #[phone]. Social work to follow-up as needed. Original Note: Discharge planning: metal casting trades worker met with pt and her family today. Pt is being recommended for PT/[facility] care [facility]. Pt and her family would like to go with [facility]. metal casting trades worker talked to Lillian at [facility] and sent over the pt's referral information. [facility] can take the pt and will open the pt within 24-48 hours of the pt discharging from the hospital. Pt is ready for discharge today and will be discharging in the early evening. [facility] will call the pt's daughter, Ana, or pt's , Yassine, to set-up the home care nurse intake time when the pt returns home. Pt and her family were thankful for the assistance. Social work to follow-up as needed.
[2023-11-03] MEDS: LIDOCAINE 5% PATCH 1 PATCH TRANSDERMA (14:16)
--- NOTE | 2023-11-03 17:05 | PC.NURSE ---
reviewed discharge packet with pt and multiple members of family. Daughter, pt, and other family members verbalized understanding of discharge instructions and followup appointments. She was discharged to home via wheelchair in the care of her family at 1700.
--- NOTE | 2023-11-03 20:28 | PC.NURSE ---
Patient's daughter Alexa has called reporting 2 Rx not filled at pharmacy. Antibiotic and Lidocaine patch were not in bag of medications her father picked up for patient. Medications were received by Richelle in computer and no phone calls from pharmacy. Pharmacy is now closed. Spoke with Dr. Cali about this and patient did have IV Rocephin today and this will cover patient until morning. Day charge nurse tomorrow 11/03 will call [facility] pharmacy at [phone] to see why these medications weren't fill and then f/u with patient's daughter again - Alexa [phone].
== END 2023-11-03 17:07 | disposition home health service (06) | DRG 522 ==
LOC: ED 23:53 → MEDSURG 11-01 01:06
PROVIDERS: Orthopaedic Surgery; Physician Assistant; Admitting Provider Internal Medicine; Emergency Provider Family Medicine; Visit Provider Family Medicine
PROC: 0SRR019 Replacement of Right Hip Joint, Femoral Surface with Metal Synthetic Substitute, Cemented, Open Approach (ICD-10-PCS; principal; 2023-11-01 15:15)
DX: S72.091A Other fracture of head and neck of right femur, initial encounter for closed fracture (principal); S42.291A Other displaced fracture of upper end of right humerus, initial encounter for closed fracture; N30.00 Acute cystitis without hematuria; B96.20 Unspecified Escherichia coli [E. coli] as the cause of diseases classified elsewhere; R35.0 Frequency of micturition; G89.18 Other acute postprocedural pain; W10.9XXA Fall (on) (from) unspecified stairs and steps, initial encounter; Y92.009 Unspecified place in unspecified non-institutional (private) residence as the place of occurrence of the external cause; F32.A Depression, unspecified; E03.9 Hypothyroidism, unspecified
CPT/HCPCS: 01210; 36415; 51702; 64450; 71045; 73030; 73060; 73200; 73501; 73502; 73552; 73560; 76000; 76942; 80048; 81001; 85025; 85027; 87086; 87186; 93005; 94761; 97110; 97116; 97161; 97165; 97530; 97535; 99100; 99140; 99284; 99285; A9270; C1776; J0665; J0690; J0696; J1100; J1170; J2250; J2371; J2405; J2704; J2795; J3010; J3490; J7030; J7050; J7120

== ENCOUNTER 2024-01-14 14:00 | Outpatient (RCR) | payer MEDICARE, BC, SELFPAY ==
--- NOTE | 2023-12-15 10:48 | PT.OPE ---
PT [facility] Eval PT [facility] Outpatient Eval Start: 12/11/23 16:22 Freq: Status: Active Protocol: Document 12/11/23 16:22 NELSON (Rec: 12/11/23 16:23 NELSON [id number]) E-signed By Kostas Ray DPT, MS Physical Therapy Outpatient Evaluation Insurance Information Recert Due Date 03/10/24 Medical Diagnosis Other nondisplaced fracture of upper end of right humerus, subsequent encounter for fracture with routine healing Treating Diagnosis R shoulder pain, decreased R shoulder PROM and AROM, and R UE and LE weakness Subjective Preferred Name Alejandrina Subjective Pt is an otherwise healthy 83 y.o. female who presents to PT with c/o R shoulder tightness , weakness and pain following humerus R surgical neck non- displaced fracture on 10/31/23 after a fall. Injury occurred when pt missed the final step in her daughter?s house landing directly on her R shoulder and R hip also suffering a R femoral neck fx. Pt had a right hip bipolar hemiarthroplasty for femoral neck fracture with anterior approach on 11/01/23. Surgical head fx was treated conservatively with good xray evidence of healing. Pt reports resolution of R hip pain and minimal R shoulder pain but her R UE feels very weak and tight being unable to lift her arm. Home PT was very helpful. Pt lives in [place] with her and was visiting her daughter who is an LAND LEASING EXAMINER in [place] when the injury occurred. Pt highly active prior to her injury going to the gym most days and walking regularly for exercise. Denies numbness or tingling in R UE. PMH includes LS OA. AGGR factors: sleeping, lifting, reaching, extended standing and walking. ALLEV factors: rest, movement, ice. Pt?s daughter attended today?s session. Pain Comments 5/10 when moving R UE 0-1/10 R hip Current Work Status Retired Precautions Therapy Limitations/Systems Review Not Limited Objective Functional Test Performed & Score Quick DASH: 76 Assessment Assessment/Impression Pt is doing well overall 6 weeks post-injury with minimal pain and a stable gait pattern. R UE is very tight with muscular and capsular tightness found with testing. R shoulder passive ROM: flex 95 deg, ABD 80 deg, ER 60 deg, IR 45 deg. Decreased R shoulder passive and active ROM in all directions with pt responding very well to passive ROM, pulleys, AAROM and scapular strengthening exercises today. She will benefit greatly from continued skilled therapy to address these limitations. Primary Functional Limitations Sleeping, lifting, reaching, extended standing and walking Plan of Care Rehabilitation Potential Excellent Physical Therapy Goals Short-term goals to be completed in 4 weeks: 1. Pt will display improved R shoulder flex and ABD passive ROM >150 deg with <2/10 pain to don/doff overhead shirts. 2. Pt will report improved quality of sleep waking <2x per night due to R shoulder pain for >3 consecutive nights Long-term goals to be completed in 10 weeks: 1. Pt will be independent and compliant with HEP 2. Pt will display >25% improvement in R shoulder functional IR to don/doff bras 3. Pt will display improved R shoulder flex, ABD, and mid and low trap strength >4/5 to lift dishes into overhead cabinets. 4. Pt will report >60% improvement in Quick DASH questionnaire to significantly improve tolerance to functional activities. Coordination/Communication With Referral Source Treatment Plan/Direct Interventions Joint Mobilization,Manual Therapy,Therapeutic Exercises Frequency/Duration 1x per week for at least 8-12 visits, decreasing to visit frequency, as able. Patient Will Be Discharged From Therapy Completion of LTG(s),Skills Plateau,Independent w/HEP, Independently Progressing Evaluation Billing Untimed Code Treatment Minutes 24 Complexity Moderate Certification Information Initial Certification Date 12/11/23 Ending Certification Date 03/10/24 Provider Signature Required Yes Provider Signature Shows Agreement With POC & Medical Necessity Physician NPI Number Write NPI# Here Physician Comment/Change : Physician Signature & Date Requested Please Sign/Date Here
== END 2024-01-14 14:58 | disposition home or self-care (01) ==
PROVIDERS: Visit Provider Orthopaedic Surgery
DX: S42.294D Other nondisplaced fracture of upper end of right humerus, subsequent encounter for fracture with routine healing (principal); M25.511 Pain in right shoulder; R29.898 Other symptoms and signs involving the musculoskeletal system; Z74.09 Other reduced mobility; Z51.89 Encounter for other specified aftercare
CPT/HCPCS: 97110; 97162